=== PATIENT | female | born 1955 | race Caucasian/White ===

== ENCOUNTER 2018-06-14 18:28 | Emergency (ER) | payer BC, SELFPAY ==
[2018-06-14 18:34] VITALS: BMI 21.9
--- NOTE | 2018-06-14 18:56 | DI.RAD.S_ITS ---
PROCEDURE: XR CHEST 2V INDICATIONS: chest pain TECHNIQUE: 2 views of the chest were acquired. COMPARISON: None. FINDINGS: Surgical changes and devices: None. Lungs and pleura: No pleural effusions or pneumothorax. Lungs are clear. Mediastinum: Mediastinal contours are normal. Heart size is normal. Bones and chest wall: No suspicious bony abnormalities. Soft tissues appear unremarkable. IMPRESSION: No acute pulmonary process. Dictated by: Nika Bender M.D. on 06/14/2018 at 19:25 Approved by: Nika Bender M.D. on 06/14/2018 at 19:25
[2018-06-14 19:04] LABS: Add Manual Diff / Slide Review NO; Basophils Percent Auto 0.8 % (0-2); Eosinophils Percent Auto 1.4 % (2-4); Hematocrit 35.6 % (36-46); Hemoglobin 12.2 g/dL (12.0-16.0); Lymphocytes Percent Auto 31.7 % (25-40); Mean Corpuscular HGB Conc 34.3 % (30-36); Mean Corpuscular Hemoglobin 32.3 PG (26-34); Mean Corpuscular Volume 94.1 fL (80-100); Monocytes Percent Auto 8.3 % (3-14); Neutrophils Absolute Auto 3500 /uL (3000-5900); Neutrophils Percent Auto 57.8 % (50-75); Platelet Count 225 X10^3/uL (150-400); Red Blood Cell Count 3.78 X10^6/uL (4.0-5.2); Red Cell Distribution Width 12.6 % (11.6-14.8)
--- NOTE | 2018-06-14 19:04 | ED_ITS ---
HPI - Chest Pain General Chief Complaint: Chest Pain Stated Complaint: CP Time Seen by Provider: 06/14/18 18:52 Source: patient Mode of arrival: ambulatory Limitations: no limitations History of Present Illness HPI narrative: Patient is a 62-year-old female presents with left-sided chest pain. On it hurts in 1 particular area every time she breathes. She did quite a bit of activity today. He was moving and lifting boxes. She was up and down stairs. She did not have to stop due to chest pain. Now that she has stopped she is noticing it more. It is not radiating. It is not reproducible with arm movement. She states that she has had things like this in the past she notices it mostly at nighttime when she is lying down. MD complaint: chest pain Related Data Home Medications Medication Instructions Recorded Confirmed [CALCIUM] Q DAY #0 12/31/12 05/17/18 [VITAMIN C] 0 Q DAY #0 12/31/12 05/17/18 [VITAMIN D] 0 Q DAY #0 12/31/12 05/17/18 iodine (bulk) 25 gm MC #0 01/18/18 05/17/18 magnesium citrate 100 mg PO #0 01/18/18 05/17/18 Allergies Allergy/AdvReac Type Severity Reaction Status Date / Time omeprazole [From PRILOSEC] Allergy Unknown Unverified 05/17/18 08:36 Review of Systems Review of Systems All systems reviewed & are unremarkable except as noted in HPI and below Constitutional Denies chills, Denies fever(s), Denies lethargy and Denies weakness Cardiovascular Reports as per HPI, Denies dyspnea and Denies dyspnea on exertion Respiratory Denies cough, Denies dyspnea, Denies dyspnea on exertion and Denies wheezing Gastrointestinal Gastrointestinal: Denies abdominal pain, Denies change in bowel habits, Denies diarrhea, Denies nausea and Denies vomiting Musculoskeletal Denies back pain, Denies muscle weakness, Denies numbness and Denies tingling Integumentary/Breasts Denies pruritus, Denies erythema, Denies rash and Denies wounds Neurologic Denies numbness, Denies tingling and Denies weakness Allergic/Immunologic Denies wheezing PFSH Medical History Healthy adult (Acute) Social History Smoking Status: Never smoker alcohol intake: never substance use type: does not use Comment: No family history of [place] Exam Initial Vital Signs Initial Vital Signs: Vital Signs Pulse Rate 54 L 06/14/18 19:37 Respiratory Rate 18 06/14/18 19:37 Blood Pressure 125/74 H 06/14/18 19:37 Pulse Oximetry 100 06/14/18 19:37 GENERAL: Well-appearing, well-nourished and in no acute distress. HEENT: Head atraumatic,EOMI, pupils reactive CARDIOVASCULAR: Regular rate and rhythm without murmurs, rubs or gallops. Pain on left side of chest between 2nd and 3rd ribs slightly reproducible with palpation RESPIRATORY: Breath sounds equal bilaterally, no wheezes rales or rhonchi. ABDOMEN: Soft, nontender. Normoactive bowel sounds all 4 quadrants. No guarding or rebound. EXTREMITIES: Normal range of motion, no clubbing or edema. Neurovascularly intact NEUROLOGICAL: Alert and oriented x4.Normal gait and speech. Cranial nerves II through XII grossly intact. SKIN: Warm, dry, no laceration, no petechiae, no rashes or lesions. Scores HEART Score Heart Score history: Slightly Suspicious Heart Score EKG: Normal Heart Score Age: 45-64 years old Heart Score risk factors: No known risk factors Heart Score troponin: < or = to normal limit Heart Score Total: 1 Course Orders Ordered: ED Orders 06/14/18 18:47 Complete Blood Count AUTO DIFF Stat Comprehensive Metabolic Panel Stat Lipase Stat Troponin & CK Cardiac Panel Stat 06/14/18 18:54 EKG-12 Lead Stat 06/14/18 18:56 XR chest 2V Stat 06/14/18 19:41 Troponin I Stat 06/14/18 21:06 Troponin I Stat Discontinued Medications Aspirin (Aspirin Chew) 324 mg PO NOW ONE Stop: 06/14/18 18:55 Last Admin: 06/14/18 19:10 Dose: 324 mg Vital Signs - 8 hr 06/14/18 19:37 06/14/18 20:29 06/14/18 22:19 Pulse Rate 54 L 59 L 57 L Respiratory Rate 18 18 12 Blood Pressure 133/77 H Blood Pressure [Left Arm] 125/74 H 128/78 H Pulse Oximetry 100 99 99 MDM - Chest Pain Medical Records Data Attestation: I reviewed the patient's medical records. Lab Data Attestation: I reviewed the patient's lab results. Result diagrams: 06/14/18 18:47 06/14/18 18:47 Lab Results 06/14/18 06/14/18 06/14/18 Range/Units 18:47 18:47 19:41 WBC 6.0 (4.5-11.0) X10^3/uL RBC 3.78 L (4.0-5.2) X10^6/uL Hgb 12.2 (12.0-16.0) g/dL Hct 35.6 L (36-46) % MCV 94.1 (80-100) fL MCH 32.3 (26-34) PG MCHC 34.3 (30-36) % RDW 12.6 (11.6-14.8) % Plt Count 225 (150-400) X10^3/uL Neut % (Auto) 57.8 (50-75) % Lymph % (Auto) 31.7 (25-40) % [place] % (Auto) 8.3 (3-14) % Eos % (Auto) 1.4 L (2-4) % Baso % (Auto) 0.8 (0-2) % Neut # (Auto) 3500 (5303-8485) /uL Sodium 140 (137-145) mmol/L Potassium 3.9 (3.4-5.1) mmol/L Chloride 105 (98-107) mmol/L Carbon Dioxide 26 (22-32) mmol/L BUN 14 (7-17) mg/dL Creatinine 0.60 (0.52-1.04) mg/dL Estimated GFR > 60.0 (>60) mL/min BUN/Creatinine Ratio 23.3 H (6-22) Glucose 90 (80-110) mg/dL Calcium 8.7 (8.4-10.2) mg/dL Total Bilirubin 0.6 (0.2-1.3) mg/dL AST 21 (14-36) IU/L ALT 20 (9-52) IU/L Alkaline Phosphatase 79 (38-126) U/L Total Creatine Kinase 90 (30-135) U/L Troponin I < 0.012 < 0.012 (0.01-0.034) ng/mL Total Protein 6.8 (6.3-8.2) g/dL Albumin 3.9 (3.5-5.0) g/dL Globulin 2.9 (1.7-4.1) g/dL Albumin/Globulin Ratio 1.3 (1.0-2.8) Lipase 72 (23-300) U/L //18 Range/Units 21:06 WBC (4.5-11.0) X10^3/uL RBC (4.0-5.2) X10^6/uL Hgb (12.0-16.0) g/dL Hct (36-46) % MCV (80-100) fL MCH (26-34) PG MCHC (30-36) % RDW (11.6-14.8) % Plt Count (150-400) X10^3/uL Neut % (Auto) (50-75) % Lymph % (Auto) (25-40) % [place] % (Auto) (3-14) % Eos % (Auto) (2-4) % Baso % (Auto) (0-2) % Neut # (Auto) (4221-0696) /uL Sodium (137-145) mmol/L Potassium (3.4-5.1) mmol/L Chloride (98-107) mmol/L Carbon Dioxide (22-32) mmol/L BUN (7-17) mg/dL Creatinine (0.52-1.04) mg/dL Estimated GFR (>60) mL/min BUN/Creatinine Ratio (6-22) Glucose (80-110) mg/dL Calcium (8.4-10.2) mg/dL Total Bilirubin (0.2-1.3) mg/dL AST (14-36) IU/L ALT (9-52) IU/L Alkaline Phosphatase (38-126) U/L Total Creatine Kinase (30-135) U/L Troponin I < 0.012 (0.01-0.034) ng/mL Total Protein (6.3-8.2) g/dL Albumin (3.5-5.0) g/dL Globulin (1.7-4.1) g/dL Albumin/Globulin Ratio (1.0-2.8) Lipase (23-300) U/L Imaging Data Chest x-ray: Radiologist's impression: PROCEDURE: XR CHEST 2V INDICATIONS: chest pain TECHNIQUE: 2 views of the chest were acquired. COMPARISON: None. FINDINGS: Surgical changes and devices: None. Lungs and pleura: No pleural effusions or pneumothorax. Lungs are clear. Mediastinum: Mediastinal contours are normal. Heart size is normal. Bones and chest wall: No suspicious bony abnormalities. Soft tissues appear unremarkable. IMPRESSION: No acute pulmonary process. Dictated by: Nika Bender M.D. on 06/14/2018 at 19:25 ECG Data Attestation: I personally reviewed and interpreted this ECG as follows: Prior ECG tracings: available for review Interpretation: EKG 1.: Sinus rhythm rate 60 Q-waves noted in septal leads no acute ST changes no priors to compare normal intervals EKG 2.: Sinus rhythm rate 54 similar to previous no ST changes. MDM Narrative Medical decision making narrative: Patient's pain pain is slightly reproducible. She was able to do quite extensive physical activity today without any difficulties. She says she has had something like this previously while lying down at night trying to go to sleep. My suspicion for cardiac issue is low. Although she does have Q-waves noted on her EKG with no prior known cardiac disease. I discussed these findings with her. I discussed all findings with the patient. Education has been performed regarding treatment plan, diagnosis, warning signs and symptoms and all concerns have been addressed. Verbally agree with and understood all of the above. Discharge Plan Departure Patient Disposition: Home, Self-Care Clinical Impression: Atypical chest pain Discharge Date/Time: 06/14/18 22:19 Interventions: ED Discharge Assessment Last Done: 06/14/18 22:19 Instructions: DI for Atypical Chest Pain Activity Restrictions/Additional Instructions: *You have been diagnosed with atypical chest *What to do: You may require further cardiac evaluation with her primary care physician *Continue to take medications as directed *Follow up with your primary care provider in 2-3 days *Return to ER if you should have increasing chest pain, change in nature, shortness of breath or any new, worsening or concerning symptoms Prescriptions: No Action [CALCIUM] Q DAY Qty: 0 RF: 0 [VITAMIN C] Q DAY Qty: 0 RF: 0 [VITAMIN D] Q DAY Qty: 0 RF: 0 iodine (bulk) 25 GM crystals 25 gm MC Qty: 0 RF: 0 magnesium citrate 100 MG tablet 100 mg PO Qty: 0 RF: 0 Referrals: Moose Verma MD [Primary Care Provider] -
[2018-06-14 19:08] LABS: Alanine Aminotransferase 20 IU/L (9-52); Albumin 3.9 g/dL (3.5-5.0); Albumin Globulin Ratio 1.3 (1.0-2.8); Alkaline Phosphatase 79 U/L (38-126); Aspartate Aminotransferase 21 IU/L (14-36); BUN Creatinine Ratio 23.3 (6-22); Bilirubin Total 0.6 mg/dL (0.2-1.3); Blood Urea Nitrogen 14 mg/dL (7-17); Calcium 8.7 mg/dL (8.4-10.2); Carbon Dioxide 26 mmol/L (22-32); Chloride 105 mmol/L (98-107); Creatine Kinase 90 U/L (30-135); Estimated Glomerular Filt Rate > 60.0 mL/min (>60); Globulin 2.9 g/dL (1.7-4.1); Glucose 90 mg/dL (80-110); HEMOLYSIS < 15 (0-50); Lipase 72 U/L (23-300); Potassium 3.9 mmol/L (3.4-5.1); Sodium 140 mmol/L (137-145); Total Protein 6.8 g/dL (6.3-8.2)
[2018-06-14] MEDS: ASPIRIN 81 MG TAB 324 MG PO (19:10)
[2018-06-14 19:20] LABS: Troponin I < 0.012 ng/mL (0.01-0.034)
[2018-06-14 19:37] VITALS: BP 125/74; PULSE 54; RESP 18; O2SAT 100
[2018-06-14 20:01] LABS: Troponin I < 0.012 ng/mL (0.01-0.034)
[2018-06-14 20:29] VITALS: BP 128/78; PULSE 59; RESP 18; O2SAT 99
[2018-06-14 21:43] LABS: Troponin I < 0.012 ng/mL (0.01-0.034)
[2018-06-14 22:19] VITALS: BP 133/77; PULSE 57; RESP 12; O2SAT 99
== END 2018-06-14 22:19 | disposition home or self-care (01) ==
PROVIDERS: Emergency Provider Emergency Medicine
DX: R07.89 Other chest pain (principal)
CPT/HCPCS: 36415; 71046; 80053; 82550; 82553; 83690; 84484; 85025; 93005; 93010; 99282; 99285

== ENCOUNTER → 2018-10-01 11:46 | Outpatient (CLI) | payer SELFPAY | PROVIDERS: PCP Family Medicine; Visit Provider Family Medicine | DX: Z12.11 Encounter for screening for malignant neoplasm of colon (principal) ==

== ENCOUNTER → 2019-07-21 13:06 | Outpatient (CLI) | payer BC, SELFPAY ==
[2019-07-23 16:55] LABS: Fecal Immunochemical Test NOT DETECTED (NOT DETECTED)
== END ==
PROVIDERS: PCP Family Medicine; Visit Provider Family Medicine
DX: Z12.11 Encounter for screening for malignant neoplasm of colon (principal)
CPT/HCPCS: 82274

== ENCOUNTER → 2019-07-22 12:11 | Outpatient (CLI) | payer BC, SELFPAY ==
--- NOTE | 2019-07-22 12:12 | DI.MG.S_ITS ---
BILATERAL DIGITAL SCREENING MAMMOGRAM 3D/2D WITH CAD: 07/22/2019 CLINICAL: Routine screening. Family history of breast cancer. Comparison is made to exams dated: 09/09/2011 mammogram, 03/15/2010 mammogram, and 03/09/2009 mammogram - [facility]. The tissue of both breasts is extremely dense, which lowers the sensitivity of mammography. Current study was also evaluated with a Computer Aided Detection (CAD) system. There is a mole marker on the right breast. There are mole markers on the left breast. No significant masses, calcifications, or other findings are seen in either breast. There has been no significant interval change. IMPRESSION: NEGATIVE There is no mammographic evidence of malignancy. A 1 year screening mammogram is recommended. This exam was interpreted at Station ID: [id number]. NOTE: For mammograms, a report in lay terms will be sent to the patient. Approximately 15% of breast malignancies will not be visualized mammographically. In the management of a palpable breast mass, a negative mammogram must not discourage biopsy of a clinically suspicious lesion. Electronically Signed By: Jameel wilhelm/elana:07/22/2019 16:30:06 letter sent: Normal Exam ACR BI-RADS Category 1: Negative 3341F
== END ==
PROVIDERS: PCP Family Medicine; Visit Provider Family Medicine
DX: Z12.31 Encounter for screening mammogram for malignant neoplasm of breast (principal); Z80.3 Family history of malignant neoplasm of breast
CPT/HCPCS: 77063; 77067

== ENCOUNTER → 2020-05-15 10:49 | Outpatient (CLI) | payer BC, SELFPAY ==
[2020-05-17 04:08] LABS: COVID19 Sendout Not Detected (Not Detected)
== END ==
PROVIDERS: PCP Family Medicine; Visit Provider Physician Assistant
DX: J02.9 Acute pharyngitis, unspecified (principal); R52 Pain, unspecified
CPT/HCPCS: 87635

== ENCOUNTER → 2021-01-25 10:28 | Outpatient (CLI) | payer OTHER, SELFPAY ==
[2021-01-28 09:11] LABS: Fecal Immunochemical Test Negative (Negative)
== END ==
PROVIDERS: PCP Family Medicine; Referring Provider Family Medicine; Visit Provider Family Medicine
DX: Z12.11 Encounter for screening for malignant neoplasm of colon (principal)
CPT/HCPCS: 82274

== ENCOUNTER → 2021-11-15 09:56 | Outpatient (CLI) | payer OTHER, SELFPAY ==
--- NOTE | 2021-11-15 10:12 | DI.RAD.S_ITS ---
PROCEDURE: XR ELBOW LT MIN 3V INDICATIONS: fall TECHNIQUE: 3 views of the elbow were acquired. COMPARISON: None. FINDINGS: Bones: Nondisplaced proximal radial head fracture is present. Soft tissues: Mild elbow joint effusion. No suspicious soft tissue calcifications. IMPRESSION: Nondisplaced proximal radial head fracture. Dictated by: Nika Bender M.D. on 11/15/2021 at 10:32 Approved by: Nika Bender M.D. on 11/15/2021 at 10:33
== END ==
PROVIDERS: PCP Family Medicine; Referring Provider Nurse Practitioner Family; Visit Provider Nurse Practitioner Family
DX: S52.125A Nondisplaced fracture of head of left radius, initial encounter for closed fracture (principal); M25.422 Effusion, left elbow; W19.XXXA Unspecified fall, initial encounter
CPT/HCPCS: 73080

== ENCOUNTER → 2022-03-26 09:16 | Outpatient (CLI) | payer MEDICARE, OTHER, SELFPAY ==
--- NOTE | 2022-03-26 | DI.MG.S_ITS ---
BILATERAL DIGITAL SCREENING MAMMOGRAM 3D/2D WITH CAD: 03/26/2022 CLINICAL: Routine screening. Family history of breast cancer. Comparison is made to exams dated: 07/22/2019 mammogram, 09/09/2011 mammogram, and 03/15/2010 mammogram - [facility]. The tissue of both breasts is extremely dense, which lowers the sensitivity of mammography. Current study was also evaluated with a Computer Aided Detection (CAD) system. There are mole markers on the left breast. No significant masses, calcifications, or other findings are seen in either breast. There has been no significant interval change. IMPRESSION: NEGATIVE There is no mammographic evidence of malignancy. A 1 year screening mammogram is recommended. This exam was interpreted at Station ID: [id number]. NOTE: For mammograms, a report in lay terms will be sent to the patient. Approximately 15% of breast malignancies will not be visualized mammographically. In the management of a palpable breast mass, a negative mammogram must not discourage biopsy of a clinically suspicious lesion. Electronically Signed By: Sabrina lanza/elana:03/26/2022 12:16:04 letter sent: Normal Exam ACR BI-RADS Category 1: Negative 3341F
== END ==
PROVIDERS: PCP Family Medicine; Referring Provider Family Medicine; Visit Provider Family Medicine
DX: Z12.31 Encounter for screening mammogram for malignant neoplasm of breast (principal); Z80.3 Family history of malignant neoplasm of breast
CPT/HCPCS: 77063; 77067

== ENCOUNTER → 2022-05-29 11:32 | Outpatient (CLI) | payer MEDICARE, OTHER, SELFPAY | PROVIDERS: PCP Family Medicine; Referring Provider Family Medicine; Visit Provider Family Medicine | DX: N95.9 Unspecified menopausal and perimenopausal disorder (principal); M81.0 Age-related osteoporosis without current pathological fracture; M85.89 Other specified disorders of bone density and structure, multiple sites | CPT/HCPCS: 77080 ==

== ENCOUNTER → 2022-08-18 10:29 | Outpatient (CLI) | payer MEDICARE, OTHER, SELFPAY ==
[2022-08-18 12:05] LABS: Alanine Aminotransferase 18 IU/L (<35); Albumin 4.1 g/dL (3.5-5.0); Albumin Globulin Ratio 1.4 (1.0-2.8); Alkaline Phosphatase 79 U/L (38-126); Aspartate Aminotransferase 25 IU/L (14-36); BUN Creatinine Ratio 18.7 (6-22); Bilirubin Total 0.9 mg/dL (0.2-1.3); Blood Urea Nitrogen 14 mg/dL (7-17); Calcium 8.8 mg/dL (8.4-10.2); Carbon Dioxide 25 mmol/L (22-32); Chloride 103 mmol/L (98-107); Estimated Glomerular Filt Rate > 60 mL/min (>60); Globulin 2.9 g/dL (1.7-4.1); Glucose 87 mg/dL (80-110); HEMOLYSIS < 15 (0-50); Sodium 138 mmol/L (137-145)
== END ==
PROVIDERS: PCP Family Medicine; Referring Provider Family Medicine; Visit Provider Family Medicine
DX: B35.1 Tinea unguium (principal); M81.0 Age-related osteoporosis without current pathological fracture
CPT/HCPCS: 36415; 80053

== ENCOUNTER 2023-02-02 09:45 | Outpatient (RCR) | payer MEDICARE, OTHER, SELFPAY ==
--- NOTE | 2022-10-30 16:49 | PT.OIE ---
Current Diagnoses Other specified disorders of muscle (10/30/22) Past Medical History (Last Updated 06/15/18 @ 03:20 by Elvira Ferguson DO) Healthy adult Past Surgical History (Last Updated 01/22/21 @ 09:46 by Sofia Morgan MD) S/P complete hysterectomy S/P oophorectomy Visit Care Team Role Provider Type Sofia Morgan MD Attending Provider Physician Family Provider Primary Care Provider Referring Provider Specialty: [facility] Address: [address] [place] [address], [place], [place], [facility] Email: [email or web address] Physical Therapy Initial Evaluation PT-OP-A Visit Information Start: 10/24/22 18:38 Freq: Status: Active Protocol: Document 10/30/22 09:55 LRN (Rec: 10/30/22 12:51 LRN [id number]) Out-Patient Physical Therapy Visit Information Visit Information Visit Type Initial Evaluation Visit Start Time 09:55 Visit Stop Time 10:49 Total Visit Minutes 54 Visit Number 1 Evaluation Information Evaluation Date 10/30/22 Precautions Precautions R clavicle fracture 1 week ago . PT-OP-B Current Condition Start: 10/24/22 18:38 Freq: Status: Active Protocol: Document 10/30/22 09:55 LRN (Rec: 10/30/22 12:51 LRN [id number]) Current Condition History of Current Condition Onset Date ~6 months ago Current Complaints Urinary urgency with occasional leakage History of Current Condition Was having urinary urgency and had trouble holding urine when flying. Tried use of pessary for a few weeks, then had Bladder lift 2019 with at [facility], and had an oophorectormy and hysterectomy . No therapy afterwards. Went to bladder class and did ex's before surgery. Now occasionally straining is causing bladder to drop and sometimes can't get to bathroom fast enough and she wets her underwear. Treatment Goals Patient/Caregiver Goals Pt goal is to learn bladder ex 's, which ex's to keep bladder toned to prevent droppage of bladder. Feels it after bowel movent, she can palpate it and pushes it back up. Has 2 visits scheduled. Current Functional Impairments (Reported) Functional Limitations- ADL's Sometimes not able to make it to bathroom in time to urinate . Personal Factors Other Personal Factors That May Effect Borderline Osteoporosis. Therapy/Recovery Retired RN. 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 PT-OP-C Subjective Start: 10/24/22 18:38 Freq: Status: Active Protocol: Document 10/30/22 09:55 LRN (Rec: 10/30/22 12:51 LRN [id number]) OP-PT Subjective Patient Comments Patient Comments States 1 week ago (last Wed) fell skiing and suffered a non -displaced L clavicle fracture and has trouble lying flat or on side. Pt is R handed. Patient Questionnaires Pelvic Pain and Urgency/Frequency Patient Symptom Scale Pelvic Pain Score 8 PT-OP-I Pelvic Floor Start: 10/24/22 18:38 Freq: Status: Active Protocol: Document 10/30/22 09:55 LRN (Rec: 10/30/22 12:51 LRN [id number]) Pelvic Floor Assessment Urine Pelvic Floor Surgery Yes Urinary Symptoms Urge Sensation,Prolapse Other Urinary Symptoms Sometimes wets underwear trying to get to bathroom. Leakage Size Small Leakage Cause Urge Leaks Per Day Urgency and leakage 3-4x/week Nocturia 1-2 Pads Used In 24 Hours Pt is not using pads Bowel Bowel Surgery No Other Bowel Symptoms Sometimes constipation Bowel Movement Frequency 1-2x/day [place] Stool Chart Type 1-7 3 [place] Stool Chart Comments Constipated when travels, 1/3 travelling Prolapse Cystocele Grade 3 Prolapse Comments Vaginal vault prolapse present . Perineal Descent Resting Present Bearing Present Contraction Ability Voluntary Contraction Weak Manual Muscle Testing Left 2 Manual Muscle Testing Right 2 Manual Muscle Testing Anterior 1 Manual Muscle Testing Posterior 2 Muscle Endurance (Seconds) 3 Number of Quick Contractions In 10 5 Seconds Comments Pelvic Floor Comments Supine: Visible/palpable cystocele and palpable Vaginal vault prolapse. Standing: Visible/palpable cystocele. PT-OP-J Posture/Palpation/Skin Start: 10/24/22 18:38 Freq: Status: Active Protocol: Document 10/30/22 09:55 LRN (Rec: 10/30/22 12:51 LRN [id number]) Posture Evaluation Position Standing Shoulder Posture (L) Elevated Pelvis Posture Posterior Tilted,(L) Rotated Posterior Hip Posture (R) Internally Rotated,(L) Externally Rotated Comments Posture Comments L arm in sling, pt Guarded in thoracic region due to reported possible L rib fractures (non-diagnosed). PT-OP-K Range of Motion Start: 10/24/22 18:38 Freq: Status: Active Protocol: Document 10/30/22 09:55 LRN (Rec: 10/30/22 12:51 LRN [id number]) Lumbar Spine Range of Motion Lumbar Spine Active Degrees Testing Position Standing Flexion 87 Extension 15 Rotation Left 20 Rotation Right 5 Lateral Flexion Left 8 Lateral Flexion Right 13 ROM Limitations Soft Tissue Tightness,Pain Comments NOTE: Pt thinks she has fx'd ribs on L side. Hip Goniometric Range of Motion Hip Right Passive Testing Position Sitting Internal Rotation 48 External Rotation 10 Left Passive Testing Position Sitting Internal Rotation 38 External Rotation 22 PT-OP-M Strength Start: 10/24/22 18:38 Freq: Status: Active Protocol: Document 10/30/22 09:55 LRN (Rec: 10/30/22 12:51 LRN [id number]) Trunk Strength Trunk Manual Muscle Testing Core Stabilization Deferred due to fx'd L Clavicle pain with positioning in supine. Hip Strength Hip Manual Muscle Testing Right External Rotation 4+ Good+ Internal Rotation 4+ Good+ Comments Testing deferred except as indicated above due to fx'd L Clavicle pain with positioning in supine. Left External Rotation 5 Normal Internal Rotation 4+ Good+ Comments Testing deferred except as indicated above due to fx'd L Clavicle pain with positioning in supine. PT-OP-Q Treatments Start: 10/24/22 18:38 Freq: Status: Active Protocol: Document 10/30/22 09:55 LRN (Rec: 10/30/22 12:51 LRN [id number]) Self-Care/Home Management Treatment Education Other Education Discussed results of evaluation, goals, and plan of care (POC). Pt agreeable to goals and POC. Pt educated in use of Bladder Diary and I/S in tracking for 1 week. Discussed use of 2 different diaries for tracking of bladder. PT-OP-T Assessment and Plan Start: 10/24/22 18:38 Freq: Status: Active Protocol: Document 10/30/22 09:55 LRN (Rec: 10/30/22 12:51 LRN [id number]) Physical Therapy Assessment Rehab Potential Rehabilitation Potential Good Evaluation Complexity Number of Personal Factors/Comorbidities 1-2 Number of Body Systems Impaired 4 or More Clinical Presentation at Evaluation Evolving Impairments Impairments Activity Tolerance,Posture,ROM ,Strength,Transfers Goals Three Impairment Decrease urinay leakage. Impairment Pt leaks 3-4x/week. Short Term Goal (STG) Pt will be educated in normal voiding times and amounts and urinary urge deference technique. STG Duration 11/27/22 Newspaper Journalist Goal (LTG) Pt will improve PF strength with decrease in urinary leakage and wetting of underwear. LTG Duration 01/28/23 Two Impairment Decrease urgency Short Term Goal (STG) Pt will be educated in BM massage and proper bowel care. STG Duration 11/27/22 Newspaper Journalist Goal (LTG) Pt will report decreased onset of urinary urgency. LTG Duration 01/28/23 One Impairment Pt lacks self care HEP. Short Term Goal (STG) Pt educated in proper transfers to lessen core abdominal pressure. STG Duration 11/27/22 Newspaper Journalist Goal (LTG) Pt will be independent in appropriate self care HEP of PF strengthening & hip stretches. Pt will be independent in appropriate core strengthening ex's. LTG Duration 01/28/23 Assessment Summary Assessment Pt is a 67 yo female with a grade 3 Cystocele and palpable vaginal vault proplapse s/p hysterectomy and oophorectomy . Stool was palpable in the rectum on internal exam, but pt denies constipation. She has weakness of her Pelvic Floor (PF) Quick Flick and Long Hold muscles. The pt PF external and internal tissues are somewhat dry and may benefit from medication to improve tissue health. In standing her cytocele is visible and extends beyond her vaginal canal opening. A pessary was used prior to her bladder lift surgery, but the pt did not like using it; therefore further discussion for use of pessary may be needed if she is not able to improve her PF strength enough to provide further support of her bladder. The pt is likely going to need an external support or other medical treatment to correct her cystocele from extending beyond her vagainal opening. She does demonstrate tenderness at the R transverse perineum and would benefit from STM to improve perineum length to eliminate vaginal gapping. Pt education will be needed for behaviour modification to eliminate urinary leakage and to decrease core pressure excerbating her prolapse condition. The pt will be assessed at the next visit with EMG biofeedback to get an idea of her overall PF strength. The pt will benefit from skilled physical therapy for PF strengthening, education and behavior modification to minimize bladder prolapse and to minimize urinary leakage on urgency. The pt's rehab will be hindered by her recent clavical fracture as she will need assist with some exercises and her tolerance to positioning for therapy is very limited. Physical Therapy Plan Frequency and Duration Frequency of Treatment 1x/Week Plan of Care Start Date 10/30/22 Plan of Care End Date 01/28/23 Therapeutic Interventions Therapeutic Interventions Home Exercise Program,Joint Mobilizations,Manual Therapy, Neuromuscular Re-education, Patient/Caregiver Education, Self-Care/Home Management,Soft Tissue Mobilization, Therapeutic Activities, Therapeutic Exercises Modalities Biofeedback,Electric Stimulation Next Visit Focus/Plan Next Note Type Treatment Note Next Visit Plan PF strength assessment and exercise with use of ES for PF assessment and biofeedback, possible use for contraction awareness. Review of Bladder diary and education/discussion of behaviour modification ( transfers, urinary holding, posture) Ther Ex for hip stretches of R >L ER, L>R IR & jennifer hip AD stretch. Manual: Hip stretches, PF stretch to close vaginal opening. Assess abdominal region for tightness/ restrictions.
--- NOTE | 2022-10-30 17:03 | PT.OIE ---
Current Diagnoses Other specified disorders of muscle (10/30/22) Past Medical History (Last Updated 06/15/18 @ 03:20 by Elvira Ferguson DO) Healthy adult Past Surgical History (Last Updated 01/22/21 @ 09:46 by Sofia Morgan MD) S/P complete hysterectomy S/P oophorectomy Visit Care Team Role Provider Type Sofia Morgan MD Attending Provider Physician Family Provider Primary Care Provider Referring Provider Specialty: [facility] Practice Address: [address] [place] [address], [place], [place], [facility] Email: [email or web address] Physical Therapy Initial Evaluation PT-OP-A Visit Information Start: 10/24/22 18:38 Freq: Status: Active Protocol: Document 10/30/22 09:55 LRN (Rec: 10/30/22 12:51 LRN [id number]) Out-Patient Physical Therapy Visit Information Visit Information Visit Type Initial Evaluation Visit Start Time 09:55 Visit Stop Time 10:49 Total Visit Minutes 54 Visit Number 1 Evaluation Information Evaluation Date 10/30/22 Precautions Precautions R clavicle fracture 1 week ago . PT-OP-B Current Condition Start: 10/24/22 18:38 Freq: Status: Active Protocol: Document 10/30/22 09:55 LRN (Rec: 10/30/22 12:51 LRN [id number]) Current Condition History of Current Condition Onset Date ~6 months ago Current Complaints Urinary urgency with occasional leakage History of Current Condition Was having urinary urgency and had trouble holding urine when flying. Tried use of pessary for a few weeks, then had Bladder lift 2019 with at [facility], and had an oophorectormy and hysterectomy . No therapy afterwards. Went to bladder class and did ex's before surgery. Now occasionally straining is causing bladder to drop and sometimes can't get to bathroom fast enough and she wets her underwear. Treatment Goals Patient/Caregiver Goals Pt goal is to learn bladder ex 's, which ex's to keep bladder toned to prevent droppage of bladder. Feels it after bowel movent, she can palpate it and pushes it back up. Has 2 visits scheduled. Current Functional Impairments (Reported) Functional Limitations- ADL's Sometimes not able to make it to bathroom in time to urinate . Personal Factors Other Personal Factors That May Effect Borderline Osteoporosis. Therapy/Recovery Retired RN. 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 PT-OP-C Subjective Start: 10/24/22 18:38 Freq: Status: Active Protocol: Document 10/30/22 09:55 LRN (Rec: 10/30/22 12:51 LRN [id number]) OP-PT Subjective Patient Comments Patient Comments States 1 week ago (last Wed) fell skiing and suffered a non -displaced L clavicle fracture and has trouble lying flat or on side. Pt is R handed. Patient Questionnaires Pelvic Pain and Urgency/Frequency Patient Symptom Scale Pelvic Pain Score 8 PT-OP-I Pelvic Floor Start: 10/24/22 18:38 Freq: Status: Active Protocol: Document 10/30/22 09:55 LRN (Rec: 10/30/22 12:51 LRN [id number]) Pelvic Floor Assessment Urine Pelvic Floor Surgery Yes Urinary Symptoms Urge Sensation,Prolapse Other Urinary Symptoms Sometimes wets underwear trying to get to bathroom. Leakage Size Small Leakage Cause Urge Leaks Per Day Urgency and leakage 3-4x/week Nocturia 1-2 Pads Used In 24 Hours Pt is not using pads Bowel Bowel Surgery No Other Bowel Symptoms Sometimes constipation Bowel Movement Frequency 1-2x/day [place] Stool Chart Type 1-7 3 [place] Stool Chart Comments Constipated when travels, 1/3 travelling Prolapse Cystocele Grade 3 Prolapse Comments Vaginal vault prolapse present . Perineal Descent Resting Present Bearing Present Contraction Ability Voluntary Contraction Weak Manual Muscle Testing Left 2 Manual Muscle Testing Right 2 Manual Muscle Testing Anterior 1 Manual Muscle Testing Posterior 2 Muscle Endurance (Seconds) 3 Number of Quick Contractions In 10 5 Seconds Comments Pelvic Floor Comments Supine: Visible/palpable cystocele and palpable Vaginal vault prolapse. Standing: Visible/palpable cystocele. PT-OP-J Posture/Palpation/Skin Start: 10/24/22 18:38 Freq: Status: Active Protocol: Document 10/30/22 09:55 LRN (Rec: 10/30/22 12:51 LRN [id number]) Posture Evaluation Position Standing Shoulder Posture (L) Elevated Pelvis Posture Posterior Tilted,(L) Rotated Posterior Hip Posture (R) Internally Rotated,(L) Externally Rotated Comments Posture Comments L arm in sling, pt Guarded in thoracic region due to reported possible L rib fractures (non-diagnosed). PT-OP-K Range of Motion Start: 10/24/22 18:38 Freq: Status: Active Protocol: Document 10/30/22 09:55 LRN (Rec: 10/30/22 12:51 LRN [id number]) Lumbar Spine Range of Motion Lumbar Spine Active Degrees Testing Position Standing Flexion 87 Extension 15 Rotation Left 20 Rotation Right 5 Lateral Flexion Left 8 Lateral Flexion Right 13 ROM Limitations Soft Tissue Tightness,Pain Comments NOTE: Pt thinks she has fx'd ribs on L side. Hip Goniometric Range of Motion Hip Right Passive Testing Position Sitting Internal Rotation 48 External Rotation 10 Left Passive Testing Position Sitting Internal Rotation 38 External Rotation 22 PT-OP-M Strength Start: 10/24/22 18:38 Freq: Status: Active Protocol: Document 10/30/22 09:55 LRN (Rec: 10/30/22 12:51 LRN [id number]) Trunk Strength Trunk Manual Muscle Testing Core Stabilization Deferred due to fx'd L Clavicle pain with positioning in supine. Hip Strength Hip Manual Muscle Testing Right External Rotation 4+ Good+ Internal Rotation 4+ Good+ Comments Testing deferred except as indicated above due to fx'd L Clavicle pain with positioning in supine. Left External Rotation 5 Normal Internal Rotation 4+ Good+ Comments Testing deferred except as indicated above due to fx'd L Clavicle pain with positioning in supine. PT-OP-Q Treatments Start: 10/24/22 18:38 Freq: Status: Active Protocol: Document 10/30/22 09:55 LRN (Rec: 10/30/22 12:51 LRN [id number]) Self-Care/Home Management Treatment Education Other Education Discussed results of evaluation, goals, and plan of care (POC). Pt agreeable to goals and POC. Pt educated in use of Bladder Diary and I/S in tracking for 1 week. Discussed use of 2 different diaries for tracking of bladder. PT-OP-T Assessment and Plan Start: 10/24/22 18:38 Freq: Status: Active Protocol: Document 10/30/22 09:55 LRN (Rec: 10/30/22 12:51 LRN [id number]) Physical Therapy Assessment Rehab Potential Rehabilitation Potential Good Evaluation Complexity Number of Personal Factors/Comorbidities 1-2 Number of Body Systems Impaired 4 or More Clinical Presentation at Evaluation Evolving Impairments Impairments Activity Tolerance,Posture,ROM ,Strength,Transfers Goals Three Impairment Urinay leakage with urgency. Impairment Sometimes not able to make it to bathroom in time to urinate . Pt leaks 3-4x/week. Short Term Goal (STG) Pt will be educated in normal voiding times and amounts and will modify behaviour to void on 1st or 2nd urinary urge. STG Duration 11/27/22 Interactive Art Director Goal (LTG) Pt will improve PF strength with decrease in urinary leakage and wetting of underwear. LTG Duration 01/28/23 Two Impairment Urinary Urgency sometimes results in urinary leakage Impairment Sometimes pt is not able to make it to the bathroom on air flights. Short Term Goal (STG) Pt will be educated in BM massage and proper bowel care and urinary urge deference technique.. STG Duration 11/27/22 Interactive Art Director Goal (LTG) Pt will report decreased onset of urinary urgency with improvement in bowel care and use of urge deference technique. LTG Duration 01/28/23 One Impairment Pt lacks self care HEP. Short Term Goal (STG) Pt educated in proper transfers to lessen core abdominal pressure. STG Duration 11/27/22 [facility] Goal (LTG) Pt will be independent in appropriate self care HEP of PF strengthening & hip stretches. Pt will be independent in appropriate core strengthening ex's. LTG Duration 01/28/23 Assessment Summary Assessment Pt is a 67 yo female with a grade 3 Cystocele and palpable vaginal vault proplapse s/p hysterectomy and oophorectomy . Stool was palpable in the rectum on internal exam, but pt denies constipation. She has weakness of her Pelvic Floor (PF) Quick Flick and Long Hold muscles. The pt PF external and internal tissues are somewhat dry and may benefit from medication to improve tissue health. In standing her cytocele is visible and extends beyond her vaginal canal opening. A pessary was used prior to her bladder lift surgery, but the pt did not like using it; therefore further discussion for use of pessary may be needed if she is not able to improve her PF strength enough to provide further support of her bladder. The pt is likely going to need an external support or other medical treatment to correct her cystocele from extending beyond her vagainal opening. She does demonstrate tenderness at the R transverse perineum and would benefit from STM to improve perineum length to eliminate vaginal gapping. Pt education will be needed for behaviour modification to eliminate urinary leakage and to decrease core pressure excerbating her prolapse condition. The pt will be assessed at the next visit with EMG biofeedback to get an idea of her overall PF strength. The pt will benefit from skilled physical therapy for PF strengthening, education and behavior modification to minimize bladder prolapse and to minimize urinary leakage on urgency. The pt's rehab will be hindered by her recent clavical fracture as she will need assist with some exercises and her tolerance to positioning for therapy is very limited. Physical Therapy Plan Frequency and Duration Frequency of Treatment 1x/Week Plan of Care Start Date 10/30/22 Plan of Care End Date 01/28/23 Therapeutic Interventions Therapeutic Interventions Home Exercise Program,Joint Mobilizations,Manual Therapy, Neuromuscular Re-education, Patient/Caregiver Education, Self-Care/Home Management,Soft Tissue Mobilization, Therapeutic Activities, Therapeutic Exercises Modalities Biofeedback,Electric Stimulation Next Visit Focus/Plan Next Note Type Treatment Note Next Visit Plan PF strength assessment and exercise with use of ES for PF assessment and biofeedback, possible use for contraction awareness. Review of Bladder diary and education/discussion of behaviour modification ( transfers, urinary holding, posture) Ther Ex for hip stretches of R >L ER, L>R IR & jennifer hip AD stretch. Manual: Hip stretches, PF stretch to close vaginal opening. Assess abdominal region for tightness/ restrictions.
--- NOTE | 2022-11-06 12:31 | PT.OTN ---
Current Diagnoses Other specified disorders of muscle (11/06/22) Physical Therapy Treatment Note PT-OP-A Visit Information Start: 10/24/22 18:38 Freq: Status: Active Protocol: Document 11/06/22 10:42 LRN (Rec: 11/06/22 12:23 LRN [id number]) Out-Patient Physical Therapy Visit Information Visit Information Visit Type Treatment Note Visit Start Time 10:42 Visit Stop Time 11:42 Total Visit Minutes 60 Visit Number 2 Evaluation Information Evaluation Date 10/30/22 Precautions Precautions R clavicle fracture 1 week ago . PT-OP-B Current Condition Start: 10/24/22 18:38 Freq: Status: Active Protocol: Document 10/30/22 09:55 LRN (Rec: 10/30/22 12:51 LRN [id number]) Current Condition History of Current Condition Onset Date ~6 months ago Current Complaints Urinary urgency with occasional leakage History of Current Condition Was having urinary urgency and had trouble holding urine when flying. Tried use of pessary for a few weeks, then had Bladder lift 2019 with at [facility], and had an oophorectormy and hysterectomy . No therapy afterwards. Went to bladder class and did ex's before surgery. Now occasionally straining is causing bladder to drop and sometimes can't get to bathroom fast enough and she wets her underwear. Treatment Goals Patient/Caregiver Goals Pt goal is to learn bladder ex 's, which ex's to keep bladder toned to prevent droppage of bladder. Feels it after bowel movent, she can palpate it and pushes it back up. Has 2 visits scheduled. Current Functional Impairments (Reported) Functional Limitations- ADL's Sometimes not able to make it to bathroom in time to urinate . Personal Factors Other Personal Factors That May Effect Borderline Osteoporosis. Therapy/Recovery Retired RN. 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 PT-OP-C Subjective Start: 10/24/22 18:38 Freq: Status: Active Protocol: Document 11/06/22 10:42 LRN (Rec: 11/06/22 12:23 LRN [id number]) OP-PT Subjective Patient Comments Patient Comments States she and her spouse have been sick, but she is feeling better. L side of ribs hurt with deep breathing. PT-OP-I Pelvic Floor Start: 10/24/22 18:38 Freq: Status: Active Protocol: Document 11/06/22 10:42 LRN (Rec: 11/06/22 12:23 LRN [id number]) Pelvic Floor Assessment SEMG (uV) Baseline 1.6 Quick Contraction 6.4 10 Second Contraction 8.9 Recruitment Pattern Good Relaxation Good Holding Fair Stability of Hold Fair SEMG Stability of Rest Poor/Slow Comments Pelvic Floor Comments EMG per vaginal electrode ( above is Avg strength): Resting: Avg MAX is 2.6 uV's. Quick Flicks: Avg MAX is 10.5 uV's (10 & 20 reps). 10 sec Hold: Avg MAX is 14.7 uV's (10 & 20 reps. 10 sec Hold Rest: Avg 3.1 uV' s and MAX 12.4 uV's PT-OP-J Posture/Palpation/Skin Start: 10/24/22 18:38 Freq: Status: Active Protocol: Document 10/30/22 09:55 LRN (Rec: 10/30/22 12:51 LRN [id number]) Posture Evaluation Position Standing Shoulder Posture (L) Elevated Pelvis Posture Posterior Tilted,(L) Rotated Posterior Hip Posture (R) Internally Rotated,(L) Externally Rotated Comments Posture Comments L arm in sling, pt Guarded in thoracic region due to reported possible L rib fractures (non-diagnosed). PT-OP-K Range of Motion Start: 10/24/22 18:38 Freq: Status: Active Protocol: Document 10/30/22 09:55 LRN (Rec: 10/30/22 12:51 LRN [id number]) Lumbar Spine Range of Motion Lumbar Spine Active Degrees Testing Position Standing Flexion 87 Extension 15 Rotation Left 20 Rotation Right 5 Lateral Flexion Left 8 Lateral Flexion Right 13 ROM Limitations Soft Tissue Tightness,Pain Comments NOTE: Pt thinks she has fx'd ribs on L side. Hip Goniometric Range of Motion Hip Right Passive Testing Position Sitting Internal Rotation 48 External Rotation 10 Left Passive Testing Position Sitting Internal Rotation 38 External Rotation 22 PT-OP-M Strength Start: 10/24/22 18:38 Freq: Status: Active Protocol: Document 10/30/22 09:55 LRN (Rec: 10/30/22 12:51 LRN [id number]) Trunk Strength Trunk Manual Muscle Testing Core Stabilization Deferred due to fx'd L Clavicle pain with positioning in supine. Hip Strength Hip Manual Muscle Testing Right External Rotation 4+ Good+ Internal Rotation 4+ Good+ Comments Testing deferred except as indicated above due to fx'd L Clavicle pain with positioning in supine. Left External Rotation 5 Normal Internal Rotation 4+ Good+ Comments Testing deferred except as indicated above due to fx'd L Clavicle pain with positioning in supine. PT-OP-Q Treatments Start: 10/24/22 18:38 Freq: Status: Active Protocol: Document 11/06/22 10:42 LRN (Rec: 11/06/22 12:23 LRN [id number]) Neuro Re-Education Treatment Other Activities PF Details PF baseline relaxation, Quick Flick & Long Hold PF contractions Reps/Duration 33' Comments Extra time taken to try and coordinate pt's PF contraction with normal breathing. Self-Care/Home Management Treatment Education Other Education Pt educated in use of vaginal electrode to assess PF strength, pt agreeable to use. Educated pt in post EMG vaginal electrode care. Educated pt in Diaphragmatic Deep Breathing and long discussion of effect of possible fx of L ribs on her breathing. Discussed possible x-ray to determine if fx's present, pros/cons of knowing if fx or not. Educated pt abdominal canister anatomy concept, and abdominal pressures with BM and discussed coordination of BM w/breathing. Discussed at length method for having BM and discussion of abdominal canister pressure and relaxation of PF via deep breathing or LE positioning ( discussion of squatty potty). Reviewed PF strengthening using elevation of hips in standing and supine and reasons for elevation for strengthening. Educated and discussed precautions of performing PF contractions while urinating. Activities Self-Care/Home Management Activities Discussed bladder diary and pt I/S to do bladder diary next week since she is better and can focus on completing the diary. I/S pt in PF strengthening supine with pillow under hips and forward bend standing with hips above bladder level. I/S pt to practice deep breathing correctly for PF contraction with inhale and hip ER. I/S pt not to perform PF contractions while urinating to decrease risk of UTI or bladder infection. PT-OP-T Assessment and Plan Start: 10/24/22 18:38 Freq: Status: Active Protocol: Document 11/06/22 10:42 LRN (Rec: 11/06/22 12:23 LRN [id number]) Physical Therapy Assessment Goals Three Impairment Urinay leakage with urgency. Impairment Sometimes not able to make it to bathroom in time to urinate . Pt leaks 3-4x/week. Short Term Goal (STG) Pt will be educated in normal voiding times and amounts and will modify behaviour to void on 1st or 2nd urinary urge. STG Duration 11/27/22 Prison Goal (LTG) Pt will improve PF strength with decrease in urinary leakage and wetting of underwear. LTG Duration 01/28/23 Two Impairment Urinary Urgency sometimes results in urinary leakage Impairment Sometimes pt is not able to make it to the bathroom on air flights. Short Term Goal (STG) Pt will be educated in BM massage and proper bowel care and urinary urge deference technique. STG Duration 11/27/22 Prison Goal (LTG) Pt will report decreased onset of urinary urgency with improvement in bowel care and use of urge deference technique. LTG Duration 01/28/23 One Impairment Pt lacks self care HEP. Short Term Goal (STG) Pt educated in proper transfers to lessen core abdominal pressure. 11/06/22: Discussed core abdominal pressures with BM's. STG Duration 11/27/22 progressing 11/06/22 Prison Goal (LTG) Pt will be independent in appropriate self care HEP of PF strengthening & hip stretches. Pt will be independent in appropriate core strengthening ex's. 11/06/22: I/S pt in Kegels in sup and standing with hips elevated above level of bladder. LTG Duration 01/28/23 progressing 11/06/22 . Assessment Summary Assessment Still no c/o PF pain, PF contractions is with TA tight and holding of breath. Pt Quick flick strength is decreased at avg 6.4 mV's for 10 reps and 6 mV's after 20 reps. Long hold is fair>good at Avg work 8.9 mV's for 10 & 20 reps. Internal Exam outcome same as EMG assessment outcome comparing Quick Flick to Long Holds. Pt has poor coordination of breathing with PF contractions and TA tightening. Was not able to get pt to not perform TA or hold breath during PF contractions. Physical Therapy Plan Frequency and Duration Frequency of Treatment 1x/Week Plan of Care Start Date 10/30/22 Plan of Care End Date 01/28/23 Next Visit Focus/Plan Next Note Type Treatment Note Next Visit Plan Caution: possible L rib fx's causing pain limiting rib excursion during deep breathing. Possible use of ES for PF contraction awareness, although focus needs to be on coordination of PF contractions with regular & deep breathing. Quick Flick strength is weaker than Long Holds. Review of Bladder diary and education/discussion of behaviour modification (proper posture), Educate in BM massage, proper bowel care, urinary urge deference technique, normal voiding times and amounts, and to modify behaviour to void on 1st or 2nd urinary urge. Ther act training: coordination of PF/TA/ transfers. Ther Ex for hip stretches of R >L ER, L>R IR & jennifer hip AD stretch. Manual: Hip stretches, PF stretch to close vaginal opening. Assess abdominal region for tightness/ restrictions in 2-4 more weeks .
--- NOTE | 2022-12-08 12:29 | PT.OTN ---
Current Diagnoses Other specified disorders of muscle (12/08/22) Physical Therapy Treatment Note PT-OP-A Visit Information Start: 10/24/22 18:38 Freq: Status: Active Protocol: Document 12/08/22 11:20 LRN (Rec: 12/08/22 12:29 LRN [id number]) Out-Patient Physical Therapy Visit Information Visit Information Visit Type Treatment Note Visit Start Time 11:20 Visit Stop Time 11:58 Total Visit Minutes 38 Visit Number 4 Evaluation Information Evaluation Date 10/30/22 Precautions Precautions R clavicle fracture 1 week ago . PT-OP-B Current Condition Start: 10/24/22 18:38 Freq: Status: Active Protocol: Document 10/30/22 09:55 LRN (Rec: 10/30/22 12:51 LRN [id number]) Current Condition History of Current Condition Onset Date ~6 months ago Current Complaints Urinary urgency with occasional leakage History of Current Condition Was having urinary urgency and had trouble holding urine when flying. Tried use of pessary for a few weeks, then had Bladder lift 2019 with at [facility], and had an oophorectormy and hysterectomy . No therapy afterwards. Went to bladder class and did ex's before surgery. Now occasionally straining is causing bladder to drop and sometimes can't get to bathroom fast enough and she wets her underwear. Treatment Goals Patient/Caregiver Goals Pt goal is to learn bladder ex 's, which ex's to keep bladder toned to prevent droppage of bladder. Feels it after bowel movent, she can palpate it and pushes it back up. Has 2 visits scheduled. Current Functional Impairments (Reported) Functional Limitations- ADL's Sometimes not able to make it to bathroom in time to urinate . Personal Factors Other Personal Factors That May Effect Borderline Osteoporosis. Therapy/Recovery Retired RN. 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 PT-OP-C Subjective Start: 10/24/22 18:38 Freq: Status: Active Protocol: Document 12/08/22 11:20 LRN (Rec: 12/08/22 12:29 LRN [id number]) OP-PT Subjective Patient Comments Patient Comments No issues with constipation, stool type 3 or 6. Drinking 60-64 oz's a day. Bowel massage seemed to cause her diahrrea type stool. PT-OP-I Pelvic Floor Start: 10/24/22 18:38 Freq: Status: Active Protocol: Document 11/06/22 10:42 LRN (Rec: 11/06/22 12:23 LRN [id number]) Pelvic Floor Assessment SEMG (uV) Baseline 1.6 Quick Contraction 6.4 10 Second Contraction 8.9 Recruitment Pattern Good Relaxation Good Holding Fair Stability of Hold Fair SEMG Stability of Rest Poor/Slow Comments Pelvic Floor Comments EMG per vaginal electrode ( above is Avg strength): Resting: Avg MAX is 2.6 uV's. Quick Flicks: Avg MAX is 10.5 uV's (10 & 20 reps). 10 sec Hold: Avg MAX is 14.7 uV's (10 & 20 reps. 10 sec Hold Rest: Avg 3.1 uV' s and MAX 12.4 uV's PT-OP-J Posture/Palpation/Skin Start: 10/24/22 18:38 Freq: Status: Active Protocol: Document 10/30/22 09:55 LRN (Rec: 10/30/22 12:51 LRN [id number]) Posture Evaluation Position Standing Shoulder Posture (L) Elevated Pelvis Posture Posterior Tilted,(L) Rotated Posterior Hip Posture (R) Internally Rotated,(L) Externally Rotated Comments Posture Comments L arm in sling, pt Guarded in thoracic region due to reported possible L rib fractures (non-diagnosed). PT-OP-K Range of Motion Start: 10/24/22 18:38 Freq: Status: Active Protocol: Document 10/30/22 09:55 LRN (Rec: 10/30/22 12:51 LRN [id number]) Lumbar Spine Range of Motion Lumbar Spine Active Degrees Testing Position Standing Flexion 87 Extension 15 Rotation Left 20 Rotation Right 5 Lateral Flexion Left 8 Lateral Flexion Right 13 ROM Limitations Soft Tissue Tightness,Pain Comments NOTE: Pt thinks she has fx'd ribs on L side. Hip Goniometric Range of Motion Hip Right Passive Testing Position Sitting Internal Rotation 48 External Rotation 10 Left Passive Testing Position Sitting Internal Rotation 38 External Rotation 22 PT-OP-M Strength Start: 10/24/22 18:38 Freq: Status: Active Protocol: Document 10/30/22 09:55 LRN (Rec: 10/30/22 12:51 LRN [id number]) Trunk Strength Trunk Manual Muscle Testing Core Stabilization Deferred due to fx'd L Clavicle pain with positioning in supine. Hip Strength Hip Manual Muscle Testing Right External Rotation 4+ Good+ Internal Rotation 4+ Good+ Comments Testing deferred except as indicated above due to fx'd L Clavicle pain with positioning in supine. Left External Rotation 5 Normal Internal Rotation 4+ Good+ Comments Testing deferred except as indicated above due to fx'd L Clavicle pain with positioning in supine. PT-OP-Q Treatments Start: 10/24/22 18:38 Freq: Status: Active Protocol: Document 12/08/22 11:20 LRN (Rec: 12/08/22 12:29 LRN [id number]) Therapeutic Exercises Supine Exercises Ball Squeeze w/PF/Breathing Supine Exercise Name Ball squeeze w/PF/3 Breath Equipment Used Wedge, ball Reps/Minutes 5 SH x 5 with 3 roll in/outs for rest period Bridge with PF/Breathing Supine Exercise Name PF/Bridge/3 breaths - active roll in/outs when at rest Equipment Used Lev 2 TB Reps/Minutes 10 SH x 10, 3 roll in/outs for rest period as TB allows Comments Much extra time needed for training. LE Roll in/out Supine Exercise Name LE Roll in/outs/DB Reps/Minutes 10 SH, 5x w/PF ><, 5x w/o PF > < Comments Extra time taken for review w/ phys & v cuing for abdominal vs chest breath Bowel massage Supine Exercise Name Verbal review of Bowel massage Reps/Minutes 3' Self-Care/Home Management Treatment Education Other Education Discussed pt's initial assessment. Discussed areas of concern to limit cystocele/rectocele. Discussed possible changes with fascia after hyste & oophorectomy. Discussed use of pessary and difference with round or cube pessary. Activities Self-Care/Home Management Activities I/S pt in PF/Bridging & Ball squeeze ex with rest period of LE roll in/out. PT-OP-T Assessment and Plan Start: 10/24/22 18:38 Freq: Status: Active Protocol: Document 12/08/22 11:20 LRN (Rec: 12/08/22 12:29 LRN [id number]) Physical Therapy Assessment Goals Three Impairment Urinay leakage with urgency. Impairment Sometimes not able to make it to bathroom in time to urinate . Pt leaks 3-4x/week. Short Term Goal (STG) Pt will be educated in normal voiding times and amounts and will modify behaviour to void on 1st or 2nd urinary urge. STG Duration 11/27/22 [facility] Goal (LTG) Pt will improve PF strength with decrease in urinary leakage and wetting of underwear. LTG Duration 01/28/23 Two Impairment Urinary Urgency sometimes results in urinary leakage Impairment Sometimes pt is not able to make it to the bathroom on air flights. Short Term Goal (STG) Pt will be educated in BM massage and proper bowel care and urinary urge deference technique. STG Duration 11/27/22 [facility] Goal (LTG) Pt will report decreased onset of urinary urgency with improvement in bowel care and use of urge deference technique. LTG Duration 01/28/23 One Impairment Pt lacks self care HEP. Short Term Goal (STG) Pt educated in proper transfers to lessen core abdominal pressure. 11/06/22: Discussed core abdominal pressures with BM's. STG Duration 11/27/22 progressing 11/06/22 [employer] Goal (LTG) Pt will be independent in appropriate self care HEP of PF strengthening & hip stretches. Pt will be independent in appropriate core strengthening ex's. 11/06/22: I/S pt in Kegels in sup and standing with hips elevated above level of bladder. 12/08/22; I/S pt in PF contractions w/Bridging and w/ ball squeeze with hips elevated. LTG Duration 01/28/23 progressing 12/08/22. Assessment Summary Assessment Pt has grade 3 Cystocele and palpable rectocele, s/p hysterectomy and oophorectomy . Pt had many questions today regarding her condition, effects on PF of her post surgery, pessary, alternatives to treatment (seek assessment by OBGYN or Urologist). Pt did some of the bowel program but she didn't seem to need it due to no constipation. She felt bowel massage made her have more diahrrea, therefore dud not do. Pt leaving after next visit for trip and is concerned not progressing quickly enough to complete rehab in 8 sessions due to learning so much and more to know. Pt anxious about not completing therapy in 8 visits , but was reassured that as she progresses therapy can continue. Physical Therapy Plan Frequency and Duration Frequency of Treatment 1x/Week Plan of Care Start Date 10/30/22 Plan of Care End Date 01/28/23 Next Visit Focus/Plan Next Note Type Treatment Note Next Visit Plan Start with EMG biofeedback ( Possible use of ES for PF contraction awareness, although focus needs to be on coordination of PF contractions with regular & deep breathing). Review PF/ Bridging & Ball squeeze ex with rest of LE roll in/out. Review and assess response to urge deference technique. Focus on strengthening Quick Flick over than Long Holds. Review of Bladder diary and education/discussion of behaviour modification (proper posture), Educate normal voiding times and amounts, Ther act training: coordination of PF/TA/ transfers. Ther Ex for hip stretches of R >L ER, L>R IR & jennifer hip AD stretch. Manual: Hip stretches, PF stretch to close vaginal opening. Assess abdominal region for tightness/ restrictions in 2-4 more weeks . Caution: possible L rib fx's causing pain limiting rib excursion
--- NOTE | 2022-12-18 16:58 | PT.OTN ---
Current Diagnoses Other specified disorders of muscle (12/18/22) Physical Therapy Treatment Note PT-OP-A Visit Information Start: 10/24/22 18:38 Freq: Status: Active Protocol: Document 12/18/22 13:52 LRN (Rec: 12/18/22 16:57 LRN [id number]) Out-Patient Physical Therapy Visit Information Visit Information Visit Type Treatment Note Visit Start Time 13:52 Visit Stop Time 14:31 Total Visit Minutes 39 Visit Number 5 Evaluation Information Evaluation Date 10/30/22 Precautions Precautions R clavicle fracture 1 week ago . PT-OP-B Current Condition Start: 10/24/22 18:38 Freq: Status: Active Protocol: Document 10/30/22 09:55 LRN (Rec: 10/30/22 12:51 LRN [id number]) Current Condition History of Current Condition Onset Date ~6 months ago Current Complaints Urinary urgency with occasional leakage History of Current Condition Was having urinary urgency and had trouble holding urine when flying. Tried use of pessary for a few weeks, then had Bladder lift 2019 with at [facility], and had an oophorectormy and hysterectomy . No therapy afterwards. Went to bladder class and did ex's before surgery. Now occasionally straining is causing bladder to drop and sometimes can't get to bathroom fast enough and she wets her underwear. Treatment Goals Patient/Caregiver Goals Pt goal is to learn bladder ex 's, which ex's to keep bladder toned to prevent droppage of bladder. Feels it after bowel movent, she can palpate it and pushes it back up. Has 2 visits scheduled. Current Functional Impairments (Reported) Functional Limitations- ADL's Sometimes not able to make it to bathroom in time to urinate . Personal Factors Other Personal Factors That May Effect Borderline Osteoporosis. Therapy/Recovery Retired RN. 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 PT-OP-C Subjective Start: 10/24/22 18:38 Freq: Status: Active Protocol: Document 12/18/22 13:52 LRN (Rec: 12/18/22 16:57 LRN [id number]) OP-PT Subjective Patient Comments Patient Comments Regular with BM's and normal ( type 4), Drinks regularly 6-8 cups a day of water. Pt wgt is 140# (should drink 70 oz/ day). 1-2x this week had to change undergarment due to urinary leakage. No leakage in the middle of the night... not usually. Leaving tomorrow for vacation and will return in 2 wks, ~01/06/23. PT-OP-I Pelvic Floor Start: 10/24/22 18:38 Freq: Status: Active Protocol: Document 12/18/22 13:52 LRN (Rec: 12/18/22 16:57 LRN [id number]) Pelvic Floor Assessment SEMG (uV) Baseline 1.6 Holding Fair Comments Pelvic Floor Comments Measurements taken on wedge ( baseline on wedge after long holds - 3.0 uV's). PF contraction hold 6 secs before decreasing. PT-OP-J Posture/Palpation/Skin Start: 10/24/22 18:38 Freq: Status: Active Protocol: Document 10/30/22 09:55 LRN (Rec: 10/30/22 12:51 LRN [id number]) Posture Evaluation Position Standing Shoulder Posture (L) Elevated Pelvis Posture Posterior Tilted,(L) Rotated Posterior Hip Posture (R) Internally Rotated,(L) Externally Rotated Comments Posture Comments L arm in sling, pt Guarded in thoracic region due to reported possible L rib fractures (non-diagnosed). PT-OP-K Range of Motion Start: 10/24/22 18:38 Freq: Status: Active Protocol: Document 10/30/22 09:55 LRN (Rec: 10/30/22 12:51 LRN [id number]) Lumbar Spine Range of Motion Lumbar Spine Active Degrees Testing Position Standing Flexion 87 Extension 15 Rotation Left 20 Rotation Right 5 Lateral Flexion Left 8 Lateral Flexion Right 13 ROM Limitations Soft Tissue Tightness,Pain Comments NOTE: Pt thinks she has fx'd ribs on L side. Hip Goniometric Range of Motion Hip Right Passive Testing Position Sitting Internal Rotation 48 External Rotation 10 Left Passive Testing Position Sitting Internal Rotation 38 External Rotation 22 PT-OP-M Strength Start: 10/24/22 18:38 Freq: Status: Active Protocol: Document 10/30/22 09:55 LRN (Rec: 10/30/22 12:51 LRN [id number]) Trunk Strength Trunk Manual Muscle Testing Core Stabilization Deferred due to fx'd L Clavicle pain with positioning in supine. Hip Strength Hip Manual Muscle Testing Right External Rotation 4+ Good+ Internal Rotation 4+ Good+ Comments Testing deferred except as indicated above due to fx'd L Clavicle pain with positioning in supine. Left External Rotation 5 Normal Internal Rotation 4+ Good+ Comments Testing deferred except as indicated above due to fx'd L Clavicle pain with positioning in supine. PT-OP-Q Treatments Start: 10/24/22 18:38 Freq: Status: Active Protocol: Document 12/18/22 13:52 LRN (Rec: 12/18/22 16:57 LRN [id number]) Neuro Re-Education Treatment Other Activities PF on wedge Details Quick Flicks/long holds, on wedge, legs on bolster Comments Decrease in strength of contraction after 6 secs and pt had trouble returning to resting tone, even with visual biofeedback. Pt then used biofeedback to relax legs to return to resting. PF Details Quick Flicks legs on bolster Reps/Duration 20x , extra time for training Comments 10 reps (uV's): Avg 19.2, Max 60.3. 20 reps (uV's): Avg 22 , Max 65. Self-Care/Home Management Treatment Activities Self-Care/Home Management Activities Pt to continue PF contraction with transfers. PF Quick flicks > Long holds. Breathing while performing PF contractions, and LE roll in/ outs with PF contractions. PT-OP-T Assessment and Plan Start: 10/24/22 18:38 Freq: Status: Active Protocol: Document 12/18/22 13:52 LRN (Rec: 12/18/22 16:57 LRN [id number]) Physical Therapy Assessment Goals Three Impairment Urinay leakage with urgency. Impairment Sometimes not able to make it to bathroom in time to urinate . Pt leaks 3-4x/week. Short Term Goal (STG) Pt will be educated in normal voiding times and amounts and will modify behaviour to void on 1st or 2nd urinary urge. 12/18/22: Pt educated in normal voiding times, every 3-4 hrs and must void after 1st or 2nd urge. STG Duration 11/27/22 (12/18/22: MET GOAL) [employer] Goal (LTG) Pt will improve PF strength with decrease in urinary leakage and wetting of underwear. LTG Duration 01/28/23 Two Impairment Urinary Urgency sometimes results in urinary leakage Impairment Sometimes pt is not able to make it to the bathroom on air flights. Short Term Goal (STG) Pt will be educated in BM massage and proper bowel care and urinary urge deference technique. 12/01/22: BM massage & urge deference education. STG Duration 11/27/22 (12/01/22: MET GOAL ) [employer] Goal (LTG) Pt will report decreased onset of urinary urgency with improvement in bowel care and use of urge deference technique. 12/18/22: Urinary leakage with urgency 1x this past week. LTG Duration 01/28/23 progressing 12/18/22 One Impairment Pt lacks self care HEP. Short Term Goal (STG) Pt educated in proper transfers to lessen core abdominal pressure. 11/06/22: Discussed core abdominal pressures with BM's. STG Duration 11/27/22 progressing 11/06/22 [facility] Goal (LTG) Pt will be independent in appropriate self care HEP of PF strengthening & hip stretches. Pt will be independent in appropriate core strengthening ex's. 11/06/22: I/S pt in Kegels in sup and standing with hips elevated above level of bladder. 12/08/22; I/S pt in PF contractions w/Bridging and w/ ball squeeze with hips elevated. LTG Duration 01/28/23 progressing 12/08/22. Assessment Summary Assessment Pt with grade 3 Cystocele and palpable rectocele, s/p hysterectomy and oophorectomy. Pt not bringing in bladder diary; therefore with discussion it appears pt has no involvement of Bowels and is drinking mostly appropriate fluids (64 of 70 oz's); therefore no further review of bladder diary will be done. Pt is having less frequent urinary leakage with a strong urge (1x this week). Pt demonstrated inconsistent PF relaxation after PF contraction while on wedge; possibly due to hips feeling like falling off bolster and therefore holding legs in place after contractions. Physical Therapy Plan Frequency and Duration Frequency of Treatment 1x/Week Plan of Care Start Date 10/30/22 Plan of Care End Date 01/28/23 Next Visit Focus/Plan Next Note Type Treatment Note Next Visit Plan Pt on vacation 2 wks, assess on return: urgency delay with use of delay technique while on vacation. Start with EMG biofeedback to determine if PF is tight or if pt can relax her PF after long holds. Try use of ES for PF contraction awareness. Focus needs to be on coordination of PF contractions with regular & deep breathing. Review PF/ Bridging & Ball squeeze ex with rest of LE roll in/out. Focus on strengthening Quick Flick over than Long Holds. Educate normal voiding times and amounts, Ther act training: coordination of PF/TA/ transfers. Ther Ex for hip stretches of R >L ER, L>R IR & jennifer hip AD stretch. Manual: Hip stretches, PF stretch to close vaginal opening. Assess abdominal region for tightness/ restrictions in 2-4 more weeks . Caution: possible L rib fx's causing pain limiting rib excursion
--- NOTE | 2023-01-13 17:33 | PT.OTN ---
Current Diagnoses Other specified disorders of muscle (01/13/23) Physical Therapy Treatment Note PT-OP-A Visit Information Start: 10/24/22 18:38 Freq: Status: Active Protocol: Document 01/13/23 14:44 LRN (Rec: 01/13/23 17:32 LRN [id number]) Out-Patient Physical Therapy Visit Information Visit Information Visit Type Treatment Note Visit Start Time 14:44 Visit Stop Time 15:26 Total Visit Minutes 42 Visit Number 6 Evaluation Information Evaluation Date 10/30/22 Precautions Precautions R clavicle fracture 1 week ago . PT-OP-B Current Condition Start: 10/24/22 18:38 Freq: Status: Active Protocol: Document 10/30/22 09:55 LRN (Rec: 10/30/22 12:51 LRN [id number]) Current Condition History of Current Condition Onset Date ~6 months ago Current Complaints Urinary urgency with occasional leakage History of Current Condition Was having urinary urgency and had trouble holding urine when flying. Tried use of pessary for a few weeks, then had Bladder lift 2019 with at [facility], and had an oophorectormy and hysterectomy . No therapy afterwards. Went to bladder class and did ex's before surgery. Now occasionally straining is causing bladder to drop and sometimes can't get to bathroom fast enough and she wets her underwear. Treatment Goals Patient/Caregiver Goals Pt goal is to learn bladder ex 's, which ex's to keep bladder toned to prevent droppage of bladder. Feels it after bowel movent, she can palpate it and pushes it back up. Has 2 visits scheduled. Current Functional Impairments (Reported) Functional Limitations- ADL's Sometimes not able to make it to bathroom in time to urinate . Personal Factors Other Personal Factors That May Effect Borderline Osteoporosis. Therapy/Recovery Retired RN. 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 PT-OP-C Subjective Start: 10/24/22 18:38 Freq: Status: Active Protocol: Document 01/13/23 14:44 LRN (Rec: 01/13/23 17:32 LRN [id number]) OP-PT Subjective Patient Comments Patient Comments Been pretty good. ONe time a week can't quite make it to the bathroom. Hasn't noticed a feeling of bulging in perineurm. PT-OP-I Pelvic Floor Start: 10/24/22 18:38 Freq: Status: Active Protocol: Document 01/13/23 14:44 LRN (Rec: 01/13/23 17:32 LRN [id number]) Pelvic Floor Assessment SEMG (uV) Baseline 0.1 Quick Contraction 11.8 10 Second Contraction 5.2 Recruitment Pattern Good Relaxation Fair Holding Poor/Slow Stability of Hold Poor/Slow SEMG Stability of Rest Fair Comments Pelvic Floor Comments Contraction values are for 10 reps. 20 reps: Quick Flicks: Work 11.1 uVs, Rest 3.5 uV's Long Holds: Work uVs, Rest 3.5 uV's PT-OP-J Posture/Palpation/Skin Start: 10/24/22 18:38 Freq: Status: Active Protocol: Document 10/30/22 09:55 LRN (Rec: 10/30/22 12:51 LRN [id number]) Posture Evaluation Position Standing Shoulder Posture (L) Elevated Pelvis Posture Posterior Tilted,(L) Rotated Posterior Hip Posture (R) Internally Rotated,(L) Externally Rotated Comments Posture Comments L arm in sling, pt Guarded in thoracic region due to reported possible L rib fractures (non-diagnosed). PT-OP-K Range of Motion Start: 10/24/22 18:38 Freq: Status: Active Protocol: Document 10/30/22 09:55 LRN (Rec: 10/30/22 12:51 LRN [id number]) Lumbar Spine Range of Motion Lumbar Spine Active Degrees Testing Position Standing Flexion 87 Extension 15 Rotation Left 20 Rotation Right 5 Lateral Flexion Left 8 Lateral Flexion Right 13 ROM Limitations Soft Tissue Tightness,Pain Comments NOTE: Pt thinks she has fx'd ribs on L side. Hip Goniometric Range of Motion Hip Right Passive Testing Position Sitting Internal Rotation 48 External Rotation 10 Left Passive Testing Position Sitting Internal Rotation 38 External Rotation 22 PT-OP-M Strength Start: 10/24/22 18:38 Freq: Status: Active Protocol: Document 10/30/22 09:55 LRN (Rec: 10/30/22 12:51 LRN [id number]) Trunk Strength Trunk Manual Muscle Testing Core Stabilization Deferred due to fx'd L Clavicle pain with positioning in supine. Hip Strength Hip Manual Muscle Testing Right External Rotation 4+ Good+ Internal Rotation 4+ Good+ Comments Testing deferred except as indicated above due to fx'd L Clavicle pain with positioning in supine. Left External Rotation 5 Normal Internal Rotation 4+ Good+ Comments Testing deferred except as indicated above due to fx'd L Clavicle pain with positioning in supine. PT-OP-Q Treatments Start: 10/24/22 18:38 Freq: Status: Active Protocol: Document 01/13/23 14:44 LRN (Rec: 01/13/23 17:32 LRN [id number]) Therapeutic Exercises Supine Exercises PF contractions Supine Exercise Name PF resting tone, quick flicks, Long holds (max, 80% max) Neuro Re-Education Treatment Other Activities PF awareness Details PF Stim for awareness of contraction Reps/Duration 8' Comments Pt tolerated intensity of 27 ( 100pps, continuous) but was not aware of contraction being performed. Setting changed to 5', 5 on 10 off, intensity 21 (100 pps), pt was not sure if she felt a PF contraction. Pt did some contractions with intensity at 19 (100 pps) but did not feel she gained awareness of PF contraction. PF on wedge Details Quick Flicks/long holds, on wedge, legs on bolster Comments Decrease in strength of contraction after 6 secs and pt had trouble returning to resting tone, even with visual biofeedback. Pt then used biofeedback to relax legs to return to resting. PT-OP-T Assessment and Plan Start: 10/24/22 18:38 Freq: Status: Active Protocol: Document 01/13/23 14:44 LRN (Rec: 01/13/23 17:32 LRN [id number]) Physical Therapy Assessment Goals Three Impairment Urinay leakage with urgency. Impairment Sometimes not able to make it to bathroom in time to urinate . Pt leaks 3-4x/week. Short Term Goal (STG) Pt will be educated in normal voiding times and amounts and will modify behaviour to void on 1st or 2nd urinary urge. 12/18/22: Pt educated in normal voiding times, every 3-4 hrs and must void after 1st or 2nd urge. STG Duration 11/27/22 (12/18/22: MET GOAL) White Sugar Supervisor Goal (LTG) Pt will improve PF strength with decrease in urinary leakage and wetting of underwear. LTG Duration 01/28/23 Two Impairment Urinary Urgency sometimes results in urinary leakage Impairment Sometimes pt is not able to make it to the bathroom on air flights. Short Term Goal (STG) Pt will be educated in BM massage and proper bowel care and urinary urge deference technique. 12/01/22: BM massage & urge deference education. STG Duration 11/27/22 (12/01/22: MET GOAL ) White Sugar Supervisor Goal (LTG) Pt will report decreased onset of urinary urgency with improvement in bowel care and use of urge deference technique. 12/18/22: Urinary leakage with urgency 1x this past week. LTG Duration 01/28/23 progressing 12/18/22 One Impairment Pt lacks self care HEP. Short Term Goal (STG) Pt educated in proper transfers to lessen core abdominal pressure. 11/06/22: Discussed core abdominal pressures with BM's. STG Duration 11/27/22 progressing 11/06/22 White Sugar Supervisor Goal (LTG) Pt will be independent in appropriate self care HEP of PF strengthening & hip stretches. Pt will be independent in appropriate core strengthening ex's. 11/06/22: I/S pt in Kegels in sup and standing with hips elevated above level of bladder. 12/08/22; I/S pt in PF contractions w/Bridging and w/ ball squeeze with hips elevated. LTG Duration 01/28/23 progressing 12/08/22. Assessment Summary Assessment Pt with grade 3 Cystocele and palpable rectocele, s/p hysterectomy and oophorectomy. Pt returning after ~ 2 weeks demonstrates weakness of PF per EMG assessment/exercise and very little tightness noted, with pt able to fairly quickly relax her PF to resting tone. Pt feels like she did better on vacation and was having only 1 accident per week, like before. She felt with PF contractions that she is holding her breath on contraction with Quick Flicks, but was able to breath through long holds. Pt was not as consistent with her PF exercises as she admits; therefore her PF strength is not as good as previously assessed. Physical Therapy Plan Frequency and Duration Frequency of Treatment 1x/Week Plan of Care Start Date 10/30/22 Plan of Care End Date 01/28/23 Next Visit Focus/Plan Next Note Type Progress Note Next Visit Plan PN next visit (appt after next on 02/02/23). EMG biofeedback for PF strengthening for long holds ( start 80% effort). Discuss trying to use ES for PF contraction awareness again ( try 50pps). Focus needs to be on coordination of PF contractions with regular & deep breathing. Cont PF/Bridging & Ball squeeze ex with rest of LE roll in/out strengthening. Focus on strengthening Quick Flick over than Long Holds. Educate: normal voiding times and amounts, Ther act training: coordination of PF/TA/ transfers. Ther Ex: hip stretches of R>L ER, L>R IR & jennifer hip AD. Manual: Hip stretches, PF stretch to close vaginal opening. Assess abdominal region for tightness/ restrictions in 2-4 more weeks . Caution: possible L rib fx's causing pain limiting rib excursion
--- NOTE | 2023-02-02 18:10 | PT.OTN ---
Current Diagnoses Other specified disorders of muscle (02/02/23) Physical Therapy Treatment Note PT-OP-A Visit Information Start: 10/24/22 18:38 Freq: Status: Active Protocol: Document 02/02/23 09:51 LRN (Rec: 02/02/23 12:13 LRN [id number]) Out-Patient Physical Therapy Visit Information Visit Information Visit Type Treatment Note Visit Start Time 09:51 Visit Stop Time 10:34 Total Visit Minutes 45 Visit Number 7 Evaluation Information Evaluation Date 10/30/22 Precautions Precautions R clavicle fracture 1 week ago . PT-OP-B Current Condition Start: 10/24/22 18:38 Freq: Status: Active Protocol: Document 10/30/22 09:55 LRN (Rec: 10/30/22 12:51 LRN [id number]) Current Condition History of Current Condition Onset Date ~6 months ago Current Complaints Urinary urgency with occasional leakage History of Current Condition Was having urinary urgency and had trouble holding urine when flying. Tried use of pessary for a few weeks, then had Bladder lift 2019 with at [facility], and had an oophorectormy and hysterectomy . No therapy afterwards. Went to bladder class and did ex's before surgery. Now occasionally straining is causing bladder to drop and sometimes can't get to bathroom fast enough and she wets her underwear. Treatment Goals Patient/Caregiver Goals Pt goal is to learn bladder ex 's, which ex's to keep bladder toned to prevent droppage of bladder. Feels it after bowel movent, she can palpate it and pushes it back up. Has 2 visits scheduled. Current Functional Impairments (Reported) Functional Limitations- ADL's Sometimes not able to make it to bathroom in time to urinate . Personal Factors Other Personal Factors That May Effect Borderline Osteoporosis. Therapy/Recovery Retired RN. 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 PT-OP-C Subjective Start: 10/24/22 18:38 Freq: Status: Active Protocol: Document 02/02/23 09:51 LRN (Rec: 02/02/23 12:13 LRN [id number]) OP-PT Subjective Patient Comments Patient Comments Can feel bladder is low, but not bulging out of perineum. Occasionally feels it buging in perineum, most of the time doesn't notice it. Patient Questionnaires Pelvic Pain and Urgency/Frequency Patient Symptom Scale Pelvic Pain Score 4 PT-OP-I Pelvic Floor Start: 10/24/22 18:38 Freq: Status: Active Protocol: Document 01/13/23 14:44 LRN (Rec: 01/13/23 17:32 LRN [id number]) Pelvic Floor Assessment SEMG (uV) Baseline 0.1 Quick Contraction 11.8 10 Second Contraction 5.2 Recruitment Pattern Good Relaxation Fair Holding Poor/Slow Stability of Hold Poor/Slow SEMG Stability of Rest Fair Comments Pelvic Floor Comments Contraction values are for 10 reps. 20 reps: Quick Flicks: Work 11.1 uVs, Rest 3.5 uV's Long Holds: Work uVs, Rest 3.5 uV's PT-OP-J Posture/Palpation/Skin Start: 10/24/22 18:38 Freq: Status: Active Protocol: Document 10/30/22 09:55 LRN (Rec: 10/30/22 12:51 LRN [id number]) Posture Evaluation Position Standing Shoulder Posture (L) Elevated Pelvis Posture Posterior Tilted,(L) Rotated Posterior Hip Posture (R) Internally Rotated,(L) Externally Rotated Comments Posture Comments L arm in sling, pt Guarded in thoracic region due to reported possible L rib fractures (non-diagnosed). PT-OP-K Range of Motion Start: 10/24/22 18:38 Freq: Status: Active Protocol: Document 10/30/22 09:55 LRN (Rec: 10/30/22 12:51 LRN [id number]) Lumbar Spine Range of Motion Lumbar Spine Active Degrees Testing Position Standing Flexion 87 Extension 15 Rotation Left 20 Rotation Right 5 Lateral Flexion Left 8 Lateral Flexion Right 13 ROM Limitations Soft Tissue Tightness,Pain Comments NOTE: Pt thinks she has fx'd ribs on L side. Hip Goniometric Range of Motion Hip Right Passive Testing Position Sitting Internal Rotation 48 External Rotation 10 Left Passive Testing Position Sitting Internal Rotation 38 External Rotation 22 PT-OP-M Strength Start: 10/24/22 18:38 Freq: Status: Active Protocol: Document 10/30/22 09:55 LRN (Rec: 10/30/22 12:51 LRN [id number]) Trunk Strength Trunk Manual Muscle Testing Core Stabilization Deferred due to fx'd L Clavicle pain with positioning in supine. Hip Strength Hip Manual Muscle Testing Right External Rotation 4+ Good+ Internal Rotation 4+ Good+ Comments Testing deferred except as indicated above due to fx'd L Clavicle pain with positioning in supine. Left External Rotation 5 Normal Internal Rotation 4+ Good+ Comments Testing deferred except as indicated above due to fx'd L Clavicle pain with positioning in supine. PT-OP-Q Treatments Start: 10/24/22 18:38 Freq: Status: Active Protocol: Document 02/02/23 09:51 LRN (Rec: 02/02/23 12:13 LRN [id number]) Therapeutic Exercises Supine Exercises Hands/knees push Supine Exercise Name Hands/knees push Side bilateral Reps/Minutes 10SH x 10 LE Roll in/out Supine Exercise Name LE Roll in/outs/DB Reps/Minutes 10 SH, 5x w/PF , alternating with hands/knees push Comments Extra time taken for review w/ phys & v cuing for abdominal vs chest breath Other Exercises PF contractions/transfer Other Exercise Name PF contractions with transfers Therapeutic Activity Therapeutic Activity Stand<>sit<>supine Name Stand<>sit, sit<>supine, shifting side<>side, with proper breathing. Reps/Minutes 2-3x Comments Extra time taken at each step for review of transfers. Much cuing needed throughout transfer. Self-Care/Home Management Treatment Education Patient Education Home Exercise Program Other Education Discussed pt's current status and progress towards goals. Reviewed urinary delay technique and discussed fluid intake and output habits, normal times between voids and impact of drinking before walks, bedtime and timing of drinking fluids for least impact. Activities Self-Care/Home Management Activities Issued HEP: Hands/knee push. PT-OP-T Assessment and Plan Start: 10/24/22 18:38 Freq: Status: Active Protocol: Document 02/02/23 09:51 LRN (Rec: 02/02/23 12:13 LRN [id number]) Physical Therapy Assessment Rehab Potential Rehabilitation Potential Good Evaluation Complexity Number of Personal Factors/Comorbidities 1-2 Number of Body Systems Impaired 4 or More Clinical Presentation at Evaluation Evolving Impairments Impairments Activity Tolerance,Strength, Transfers Goals Three Impairment Urinay leakage with urgency. Impairment Sometimes not able to make it to bathroom in time to urinate . Pt leaks 3-4x/week. Short Term Goal (STG) Pt will be educated in normal voiding times and amounts and will modify behaviour to void on 1st or 2nd urinary urge. 12/18/22: Pt educated in normal voiding times, every 3-4 hrs and must void after 1st or 2nd urge. STG Duration 11/27/22 (12/18/22: MET GOAL) Mcfp Goal (LTG) Pt will improve PF strength with decrease in urinary leakage and wetting of underwear. 02/03/20: Small leaks still 3- 4x/week. Leaks trying to pull pants down. Not since doing therapy has she wet her underwear, just a small bit. Somtimes waits to long and more often once leaks, doesn't have the urge anymore. LTG Duration 01/28/23 (02/02/23: Partailly met goal) Two Impairment Urinary Urgency sometimes results in urinary leakage Impairment Sometimes pt is not able to make it to the bathroom on air flights. Short Term Goal (STG) Pt will be educated in BM massage and proper bowel care and urinary urge deference technique. 12/01/22: BM massage & urge deference education. STG Duration 11/27/22 (12/01/22: MET GOAL ) Mcfp Goal (LTG) Pt will report decreased onset of urinary urgency with improvement in bowel care and use of urge deference technique. 12/18/22: Urinary leakage with urgency 1x this past week. 02/02/23: Last 3 months has not had problem making it to the bathroom on air flights. Bowels are daily. Hasn't been consistent with stopping and deep breathing part of urgency deference techique LTG Duration 01/28/23 02/02/23: Goal partially met. One Impairment Pt lacks self care HEP. Short Term Goal (STG) Pt educated in proper transfers to lessen core abdominal pressure. 11/06/22: Discussed core abdominal pressures with BM's. STG Duration 11/27/22 progressing 11/06/22 Mcfp Goal (LTG) Pt will be independent in appropriate self care HEP of PF strengthening & hip stretches. Pt will be independent in appropriate core strengthening ex's. 11/06/22: I/S pt in Kegels in sup and standing with hips elevated above level of bladder. 12/08/22; I/S pt in PF contractions w/Bridging and w/ ball squeeze with hips elevated. LTG Duration 01/28/23 (02/02/23: MET GOAL for current condition) Assessment Summary Assessment Pt attends therapy after ~3 weeks absence due to multiple trips. She is being seen today for reassessment and her new POC for discharge to a HEP today. Pt PUF score shows improvement from 8 to 4 (of 14 max). The pt feels she is ready at this time to be discharged to her self care HEP and did not feel she needed extra copies of her HEP . Initially the pt's progress was slow due to her lack of tolerance to positioning and ex from her rib fractures. The pt would benefit from further PF strengthening training, especially with use of EStim to the PF. The pt reports maybe at a later date when she is not travelling as much she might return for further PF strengthening. Physical Therapy Plan Frequency and Duration Frequency of Treatment 1x/Week Plan of Care Start Date 01/28/23 Plan of Care End Date 02/02/23 Therapeutic Interventions Therapeutic Interventions Home Exercise Program,Self- Care/Home Management, Therapeutic Exercises Discharge Physical Therapy Discharge Reasons Patient Request Discharge Comments The pt would benefit from physical therapy at a later date when she is not travelling as much so that she can focus more on her therapy program. Pt states she might return for further PF strengthening.
--- NOTE | 2023-02-02 18:10 | PT.OPPOC ---
Physical, Occupational & Speech Therapy At [facility] Current Diagnoses Other specified disorders of muscle (02/02/23) Visit Care Team Role Provider Type Sofia Morgan MD Attending Provider Physician Family Provider Primary Care Provider Referring Provider Specialty: Family Practice Address: [address] [place] [address], [id number] Email: [email or web address] Plan Of Care PT-OP-T Assessment and Plan Start: 10/24/22 18:38 Freq: Status: Active Protocol: Document 02/02/23 09:51 LRN (Rec: 02/02/23 12:13 LRN [id number]) Physical Therapy Assessment Rehab Potential Rehabilitation Potential Good Evaluation Complexity Number of Personal Factors/Comorbidities 1-2 Number of Body Systems Impaired 4 or More Clinical Presentation at Evaluation Evolving Impairments Impairments Activity Tolerance,Strength, Transfers Goals Three Impairment Urinay leakage with urgency. Impairment Sometimes not able to make it to bathroom in time to urinate . Pt leaks 3-4x/week. Short Term Goal (STG) Pt will be educated in normal voiding times and amounts and will modify behaviour to void on 1st or 2nd urinary urge. 12/18/22: Pt educated in normal voiding times, every 3-4 hrs and must void after 1st or 2nd urge. STG Duration 11/27/22 (12/18/22: MET GOAL) Record Searcher Goal (LTG) Pt will improve PF strength with decrease in urinary leakage and wetting of underwear. 02/03/20: Small leaks still 3- 4x/week. Leaks trying to pull pants down. Not since doing therapy has she wet her underwear, just a small bit. Somtimes waits to long and more often once leaks, doesn't have the urge anymore. LTG Duration 01/28/23 (02/02/23: Partailly met goal) Two Impairment Urinary Urgency sometimes results in urinary leakage Impairment Sometimes pt is not able to make it to the bathroom on air flights. Short Term Goal (STG) Pt will be educated in BM massage and proper bowel care and urinary urge deference technique. 12/01/22: BM massage & urge deference education. STG Duration 11/27/22 (12/01/22: MET GOAL ) Record Searcher Goal (LTG) Pt will report decreased onset of urinary urgency with improvement in bowel care and use of urge deference technique. 12/18/22: Urinary leakage with urgency 1x this past week. 02/02/23: Last 3 months has not had problem making it to the bathroom on air flights. Bowels are daily. Hasn't been consistent with stopping and deep breathing part of urgency deference techique LTG Duration 01/28/23 02/02/23: Goal partially met. One Impairment Pt lacks self care HEP. Short Term Goal (STG) Pt educated in proper transfers to lessen core abdominal pressure. 11/06/22: Discussed core abdominal pressures with BM's. STG Duration 11/27/22 progressing 11/06/22 Record Searcher Goal (LTG) Pt will be independent in appropriate self care HEP of PF strengthening & hip stretches. Pt will be independent in appropriate core strengthening ex's. 11/06/22: I/S pt in Kegels in sup and standing with hips elevated above level of bladder. 12/08/22; I/S pt in PF contractions w/Bridging and w/ ball squeeze with hips elevated. LTG Duration 01/28/23 (02/02/23: MET GOAL for current condition) Assessment Summary Assessment Pt attends therapy after ~3 weeks absence due to multiple trips. She is being seen today for reassessment and her new POC for discharge to a HEP today. Pt PUF score shows improvement from 8 to 4 (of 14 max). The pt feels she is ready at this time to be discharged to her self care HEP and did not feel she needed extra copies of her HEP . Initially the pt's progress was slow due to her lack of tolerance to positioning and ex from her rib fractures. The pt would benefit from further PF strengthening training, especially with use of EStim to the PF. The pt reports maybe at a later date when she is not travelling as much she might return for further PF strengthening. Physical Therapy Plan Frequency and Duration Frequency of Treatment 1x/Week Plan of Care Start Date 01/28/23 Plan of Care End Date 02/02/23 Therapeutic Interventions Therapeutic Interventions Home Exercise Program,Self- Care/Home Management, Therapeutic Exercises Discharge Physical Therapy Discharge Reasons Patient Request Discharge Comments The pt would benefit from physical therapy at a later date when she is not travelling as much so that she can focus more on her therapy program. Pt states she might return for further PF strengthening. Plan of Care Dates Plan of Care Start Date 01/28/23 Plan of Care End Date 02/02/23 Electronically Signed by: Sabrina Mathews, PT 02/02/23 3510 If you are in agreement with this Plan of Care, please return a signed and dated copy. I have reviewed this Plan of Care and certify that the skilled therapy services above are required to meet the patient?s needs. Physician Signature Date Printed Name and Credentials Clinical Instructor Signature Printed Name and Credentials
--- NOTE | 2023-02-03 09:30 | PT.OPDS ---
Current Diagnoses Other specified disorders of muscle (02/02/23) Visit Care Team Role Provider Type Sofia oMrgan MD Attending Provider Physician Family Provider Primary Care Provider Referring Provider Specialty: Family Practice Address: [address] [place] [address], [facility] [place], [facility] Email: [email or web address] Visit Number Visit Number 7 Discharge Summary PT-OP-B Current Condition Start: 10/24/22 18:38 Freq: Status: Active Protocol: Document 10/30/22 09:55 LRN (Rec: 10/30/22 12:51 LRN [id number]) Current Condition History of Current Condition Onset Date ~6 months ago Current Complaints Urinary urgency with occasional leakage History of Current Condition Was having urinary urgency and had trouble holding urine when flying. Tried use of pessary for a few weeks, then had Bladder lift 2019 with at [facility], and had an oophorectormy and hysterectomy . No therapy afterwards. Went to bladder class and did ex's before surgery. Now occasionally straining is causing bladder to drop and sometimes can't get to bathroom fast enough and she wets her underwear. Treatment Goals Patient/Caregiver Goals Pt goal is to learn bladder ex 's, which ex's to keep bladder toned to prevent droppage of bladder. Feels it after bowel movent, she can palpate it and pushes it back up. Has 2 visits scheduled. Current Functional Impairments (Reported) Functional Limitations- ADL's Sometimes not able to make it to bathroom in time to urinate . Personal Factors Other Personal Factors That May Effect Borderline Osteoporosis. Therapy/Recovery Retired RN. 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 PT-OP-C Subjective Start: 10/24/22 18:38 Freq: Status: Active Protocol: Document 02/02/23 09:51 LRN (Rec: 02/02/23 12:13 LRN [id number]) OP-PT Subjective Patient Comments Patient Comments Can feel bladder is low, but not bulging out of perineum. Occasionally feels it buging in perineum, most of the time doesn't notice it. Patient Questionnaires Pelvic Pain and Urgency/Frequency Patient Symptom Scale Pelvic Pain Score 4 PT-OP-I Pelvic Floor Start: 10/24/22 18:38 Freq: Status: Active Protocol: Document 01/13/23 14:44 LRN (Rec: 01/13/23 17:32 LRN [id number]) Pelvic Floor Assessment SEMG (uV) Baseline 0.1 Quick Contraction 11.8 10 Second Contraction 5.2 Recruitment Pattern Good Relaxation Fair Holding Poor/Slow Stability of Hold Poor/Slow SEMG Stability of Rest Fair Comments Pelvic Floor Comments Contraction values are for 10 reps. 20 reps: Quick Flicks: Work 11.1 uVs, Rest 3.5 uV's Long Holds: Work uVs, Rest 3.5 uV's PT-OP-J Posture/Palpation/Skin Start: 10/24/22 18:38 Freq: Status: Active Protocol: Document 10/30/22 09:55 LRN (Rec: 10/30/22 12:51 LRN [id number]) Posture Evaluation Position Standing Shoulder Posture (L) Elevated Pelvis Posture Posterior Tilted,(L) Rotated Posterior Hip Posture (R) Internally Rotated,(L) Externally Rotated Comments Posture Comments L arm in sling, pt Guarded in thoracic region due to reported possible L rib fractures (non-diagnosed). PT-OP-K Range of Motion Start: 10/24/22 18:38 Freq: Status: Active Protocol: Document 10/30/22 09:55 LRN (Rec: 10/30/22 12:51 LRN [id number]) Lumbar Spine Range of Motion Lumbar Spine Active Degrees Testing Position Standing Flexion 87 Extension 15 Rotation Left 20 Rotation Right 5 Lateral Flexion Left 8 Lateral Flexion Right 13 ROM Limitations Soft Tissue Tightness,Pain Comments NOTE: Pt thinks she has fx'd ribs on L side. Hip Goniometric Range of Motion Hip Right Passive Testing Position Sitting Internal Rotation 48 External Rotation 10 Left Passive Testing Position Sitting Internal Rotation 38 External Rotation 22 PT-OP-M Strength Start: 10/24/22 18:38 Freq: Status: Active Protocol: Document 10/30/22 09:55 LRN (Rec: 10/30/22 12:51 LRN [id number]) Trunk Strength Trunk Manual Muscle Testing Core Stabilization Deferred due to fx'd L Clavicle pain with positioning in supine. Hip Strength Hip Manual Muscle Testing Right External Rotation 4+ Good+ Internal Rotation 4+ Good+ Comments Testing deferred except as indicated above due to fx'd L Clavicle pain with positioning in supine. Left External Rotation 5 Normal Internal Rotation 4+ Good+ Comments Testing deferred except as indicated above due to fx'd L Clavicle pain with positioning in supine. PT-OP-T Assessment and Plan Start: 10/24/22 18:38 Freq: Status: Active Protocol: Document 02/02/23 09:51 LRN (Rec: 02/02/23 12:13 LRN [id number]) Physical Therapy Assessment Rehab Potential Rehabilitation Potential Good Evaluation Complexity Number of Personal Factors/Comorbidities 1-2 Number of Body Systems Impaired 4 or More Clinical Presentation at Evaluation Evolving Impairments Impairments Activity Tolerance,Strength, Transfers Goals Three Impairment Urinay leakage with urgency. Impairment Sometimes not able to make it to bathroom in time to urinate . Pt leaks 3-4x/week. Short Term Goal (STG) Pt will be educated in normal voiding times and amounts and will modify behaviour to void on 1st or 2nd urinary urge. 12/18/22: Pt educated in normal voiding times, every 3-4 hrs and must void after 1st or 2nd urge. STG Duration 11/27/22 (12/18/22: MET GOAL) Custodial Goal (LTG) Pt will improve PF strength with decrease in urinary leakage and wetting of underwear. 02/03/20: Small leaks still 3- 4x/week. Leaks trying to pull pants down. Not since doing therapy has she wet her underwear, just a small bit. Somtimes waits to long and more often once leaks, doesn't have the urge anymore. LTG Duration 01/28/23 (02/02/23: Partailly met goal) Two Impairment Urinary Urgency sometimes results in urinary leakage Impairment Sometimes pt is not able to make it to the bathroom on air flights. Short Term Goal (STG) Pt will be educated in BM massage and proper bowel care and urinary urge deference technique. 12/01/22: BM massage & urge deference education. STG Duration 11/27/22 (12/01/22: MET GOAL ) Custodial Goal (LTG) Pt will report decreased onset of urinary urgency with improvement in bowel care and use of urge deference technique. 12/18/22: Urinary leakage with urgency 1x this past week. 02/02/23: Last 3 months has not had problem making it to the bathroom on air flights. Bowels are daily. Hasn't been consistent with stopping and deep breathing part of urgency deference techique LTG Duration 01/28/23 02/02/23: Goal partially met. One Impairment Pt lacks self care HEP. Short Term Goal (STG) Pt educated in proper transfers to lessen core abdominal pressure. 11/06/22: Discussed core abdominal pressures with BM's. STG Duration 11/27/22 progressing 11/06/22 Custodial Goal (LTG) Pt will be independent in appropriate self care HEP of PF strengthening & hip stretches. Pt will be independent in appropriate core strengthening ex's. 11/06/22: I/S pt in Kegels in sup and standing with hips elevated above level of bladder. 12/08/22; I/S pt in PF contractions w/Bridging and w/ ball squeeze with hips elevated. LTG Duration 01/28/23 (02/02/23: MET GOAL for current condition) Assessment Summary Assessment Pt attends therapy after ~3 weeks absence due to multiple trips. She is being seen today for reassessment and her new POC for discharge to a HEP today. Pt PUF score shows improvement from 8 to 4 (of 14 max). The pt feels she is ready at this time to be discharged to her self care HEP and did not feel she needed extra copies of her HEP . Initially the pt's progress was slow due to her lack of tolerance to positioning and ex from her rib fractures. The pt would benefit from further PF strengthening training, especially with use of EStim to the PF. The pt reports maybe at a later date when she is not travelling as much she might return for further PF strengthening. Physical Therapy Plan Frequency and Duration Frequency of Treatment 1x/Week Plan of Care Start Date 01/28/23 Plan of Care End Date 02/02/23 Therapeutic Interventions Therapeutic Interventions Home Exercise Program,Self- Care/Home Management, Therapeutic Exercises Discharge Physical Therapy Discharge Reasons Patient Request Discharge Comments The pt would benefit from physical therapy at a later date when she is not travelling as much so that she can focus more on her therapy program. Pt states she might return for further PF strengthening.
== END 2023-02-04 15:19 | disposition home or self-care (01) ==
LOC: PHYS 09:45
PROVIDERS: Family Provider Family Medicine; PCP Family Medicine; Referring Provider Family Medicine; Visit Provider Family Medicine
DX: M62.89 Other specified disorders of muscle (principal)
CPT/HCPCS: 97110; 97112; 97162; 97530; 97535

== ENCOUNTER → 2023-04-28 08:14 | Outpatient (CLI) | payer MEDICARE, OTHER, SELFPAY ==
[2023-04-28 09:42] LABS: Alanine Aminotransferase 33 IU/L (<35); Albumin 3.8 g/dL (3.5-5.0); Albumin Globulin Ratio 1.4 (1.0-2.8); Alkaline Phosphatase 72 U/L (38-126); Aspartate Aminotransferase 31 IU/L (14-36); BUN Creatinine Ratio 12.7 (6-22); Bilirubin Total 0.6 mg/dL (0.2-1.3); Blood Urea Nitrogen 9 mg/dL (7-17); Calcium 8.5 mg/dL (8.4-10.2); Carbon Dioxide 27 mmol/L (22-32); Chloride 104 mmol/L (98-107); Estimated Glomerular Filt Rate > 60 mL/min (>60); Globulin 2.8 g/dL (1.7-4.1); Glucose 82 mg/dL (80-110); HEMOLYSIS < 15 (0-50); Potassium 3.9 mmol/L (3.4-5.1); Sodium 138 mmol/L (137-145); Total Protein 6.6 g/dL (6.3-8.2)
== END ==
PROVIDERS: Family Provider Family Medicine; PCP Family Medicine; Referring Provider Family Medicine; Visit Provider Family Medicine
DX: K52.1 Toxic gastroenteritis and colitis (principal)
CPT/HCPCS: 36415; 80053

== ENCOUNTER 2023-08-03 08:05 | Day surgery (SDC) | payer MEDICARE, OTHER, SELFPAY ==
[2023-08-03 08:25] VITALS: BP 104/66; PULSE 60; RESP 18; TEMP 36.6; O2SAT 98; BMI 22.2
[2023-08-03] MEDS: LACTATED RINGERS 1,000 ML 84 ML IV (08:40)
--- NOTE | 2023-08-03 09:14 | P.HP_ITS ---
History of Present Illness History of Present Illness Date Patient Seen: 08/03/23 Time Patient Seen: 09:14 Chief complaint: SDC Narrative: Here for colon cancer screening. Reports she had polyps some 11 years ago at colonoscopy. [facility] Medical History Healthy adult Nondisplaced fracture of head of left radius Surgical History S/P complete hysterectomy S/P oophorectomy Social History marital status: number of children: 2 household members: spouse lives independently: Yes caregiver/support person: No housing: house Smoking Status: Never smoker second hand exposure: No alcohol intake: never substance use type: does not use Meds Home Medications and Allergies Home Medications Medication Instructions Recorded Confirmed Type [CALCIUM] 1,000 mg PO Q DAY ##0 12/31/12 08/03/23 History [VITAMIN D] 1 tab PO Q DAY ##0 12/31/12 08/03/23 History Allergies Allergy/AdvReac Type Severity Reaction Status Date / Time omeprazole [From PRILOSEC] Allergy Unknown Dizziness Verified 08/03/23 08:17 Review of Systems Review of Systems ROS: Yes All systems reviewed with the patient and are negative except as otherwise documented Exam Vital Signs (past 8 hours): - 08/03/23 08:25 Temperature 97.8 F Pulse Rate 60 Respiratory Rate 18 Blood Pressure 104/66 Pulse Oximetry 98 Oxygen Delivery Method Room Air Oxygen Delivery Method Room Air Const General: cooperative HENMT Head: normal to inspection Eyes General: appearance normal, both eyes and all related structures Neck Neck: normal visual inspection Chest Chest: normal inspection of the chest Resp Effort & Inspection: normal respiratory effort Cardio Rate: regular rate GI Inspection: normal to inspection Skin General: no rashes or lesions noted Neuro General: patient alert and patient awake Extrem General: normal to inspection and no pedal edema Psych Appearance: grossly normal Assessment & Plan Assessment & Plan narrative: 68-year-old female they personal history of polyps. Colonoscopy is pursued today.
--- NOTE | 2023-08-03 09:15 | PM.PREOP ---
Pre-operative Note Interval Note History & Physical reviewed/Exam performed by Physician: Yes Changes to H&P: No ASA Class (for procedural sedation): I
[2023-08-03 09:40] VITALS: BP 101/59; PULSE 57; RESP 21; TEMP 36.8; O2SAT 98
--- NOTE | 2023-08-03 09:42 | PM.OP.COLON ---
Operative Date/Time/Diagnoses Date of procedure: 08/03/23 Time of procedure: 09:42 Pre-op diagnosis: Colon cancer screening. Personal history of unknown histology polyps. Post-op diagnosis: same Procedure & Clinicians Study performed: Colonoscopy Same procedure as scheduled: Yes Indications: Screening. Personal history of unknown colon polyps. Surgeon: Adam Epstein Procedure Notes SCOAP/Timeout: Done Procedure in detail: After the risks and benefits were explained, written and verbal informed consent was obtained. The patient was brought into the procedure room and placed into the left lateral decubitus position. Please see anesthesia notes for sedation details. Digital rectal examination was accomplished. The scope was introduced into the patient and advanced under direct visualization to the cecum as identified by the appendiceal orifice and ileocecal valve. The scope was slowly withdrawn to carefully examine the mucosa for any defects or lesions. Comprehensive imaging was accomplished throughout the rectum including the dentate line. The colon was decompressed, the scope was then removed from the patient who tolerated the procedure well. Pediatric colonoscope Bowel prep adequate Scope withdrawal time: 8 minutes Sedation minutes: 17 Specimen(s): none sent Complications: none Impression: No significant pathology was appreciated throughout. Rectal exam was normal. Endoscopic diagnosis Visually normal colonoscopy Post-procedure Plan for aftercare: Repeat colonoscopy 10 years; sooner should symptoms warrant an earlier exam. Disposition: PACU
[2023-08-03 09:45] VITALS: BP 106/63; PULSE 59; RESP 17; O2SAT 99
[2023-08-03 09:50] VITALS: BP 105/66; PULSE 61; RESP 11; O2SAT 99
[2023-08-03 09:55] VITALS: BP 114/69; PULSE 54; RESP 15; O2SAT 99
[2023-08-03 10:01] VITALS: BP 131/73; PULSE 53; RESP 19; O2SAT 100
== END 2023-08-03 11:09 | disposition home or self-care (01) ==
PROVIDERS: Family Provider Family Medicine; PCP Family Medicine; Referring Provider Internal Medicine Gastroenterology; Visit Provider Internal Medicine Gastroenterology
PROC: 0DJD8ZZ Inspection of Lower Intestinal Tract, Via Natural or Artificial Opening Endoscopic (ICD-10-PCS; CPT 45378; principal; 2023-08-03 09:00)
DX: Z12.11 Encounter for screening for malignant neoplasm of colon (principal); Z86.010 Personal history of colon polyps
CPT/HCPCS: G0105; J2704

== ENCOUNTER → 2023-12-07 12:36 | Outpatient (CLI) | payer MEDICARE, OTHER, SELFPAY ==
--- NOTE | 2023-12-07 12:39 | DI.RAD.S_ITS ---
PROCEDURE: XR LUMBAR SPINE 2-3V INDICATIONS: low back pain after fall TECHNIQUE: 3 views of the lumbar spine were acquired. COMPARISON: None. FINDINGS: Bones: [id number] vertebrae are present. Wedge compression deformity of L1 is seen anteriorly with approximately 25% height loss. Soft tissues: Overlying bowel gas pattern is normal. No suspicious soft tissue calcifications. IMPRESSION: Wedge compression deformity of L1 with approximately 25% height loss may be acute or chronic. Dictated by: Sudarshan Trinidad M.D. on 12/07/2023 at 18:11 Approved by: Sudarshan Trinidad M.D. on 12/07/2023 at 18:13
== END ==
PROVIDERS: Family Provider Family Medicine; PCP Family Medicine; Referring Provider Family Medicine; Visit Provider Family Medicine
DX: M43.8X6 Other specified deforming dorsopathies, lumbar region (principal); M54.50 Low back pain, unspecified
CPT/HCPCS: 72100

== ENCOUNTER → 2024-01-06 08:16 | Outpatient (CLI) | payer MEDICARE, OTHER, SELFPAY ==
[2024-01-06 09:24] LABS: Alanine Aminotransferase 15 IU/L (<35); Albumin Globulin Ratio 1.3 (1.0-2.8); Alkaline Phosphatase 82 U/L (38-126); Aspartate Aminotransferase 25 IU/L (14-36); BUN Creatinine Ratio 19.1 (6-22); Bilirubin Total 1.2 mg/dL (0.2-1.3); Blood Urea Nitrogen 13 mg/dL (7-17); Calcium 8.8 mg/dL (8.4-10.2); Carbon Dioxide 29 mmol/L (22-32); Chloride 105 mmol/L (98-107); Cholesterol 186 mg/dL (140-199); Estimated Glomerular Filt Rate > 60 mL/min (>60); Globulin 3.2 g/dL (1.7-4.1); Glucose 85 mg/dL (80-110); HDL Cholesterol 55 mg/dL (40-60); HEMOLYSIS < 15 (0-50); LDL Cholesterol Calculated 118 mg/dL (<100); Sodium 139 mmol/L (137-145); Total Protein 7.2 g/dL (6.3-8.2); Triglycerides 63 mg/dL (35-150)
[2024-01-06 09:45] LABS: Vitamin D 25 Hydroxy (D3) 67.8 ng/mL (30.0-100.0)
[2024-01-07 18:08] LABS: Hep C Virus Ab w/Reflex Quant NEGATIVE s/c (NEGATIVE)
== END ==
PROVIDERS: Family Provider Family Medicine; PCP Family Medicine; Referring Provider Family Medicine; Visit Provider Family Medicine
DX: Z13.220 Encounter for screening for lipoid disorders (principal); M81.0 Age-related osteoporosis without current pathological fracture; Z13.9 Encounter for screening, unspecified
CPT/HCPCS: 36415; 80053; 80061; 82306; 86803

== ENCOUNTER → 2025-05-01 13:58 | Outpatient (CLI) | payer MEDICARE, OTHER, SELFPAY ==
--- NOTE | 2025-05-01 14:00 | DI.MG.S_ITS ---
MM screening mammo BI: 05/01/2025. BI-RADS: 1 CLINICAL: 69-year old female for bilateral screening mammogram. Tyrer-Cuzick lifetime risk of 14.2%. No personal or first-degree family history of breast cancer. Current reported family history of breast cancer: paternal grandmother. PRIOR EXAMS 03/26/2022, 07/22/2019. MAMMOGRAPHY TECHNIQUE: 2D and 3D (tomosynthesis) digital mammographic views obtained, with additional images as needed for full coverage. Current study was also evaluated with a Computer Aided Detection (CAD) system. DENSITY D. The breasts are extremely dense, which lowers the sensitivity of mammography. MAMMOGRAPHY FINDINGS Bilateral: No suspicious mass, asymmetry, microcalcification, or other abnormality seen. No significant change from comparison. IMPRESSION: * No evidence of malignancy. RECOMMENDATIONS Bilateral * Annual screening mammography. OVERALL ASSESSMENT CATEGORY BI-RADS-1: Negative. The [employer] recommends annual screening mammography beginning at age 40 for women with average risk of breast cancer. ELECTRONICALLY SIGNED: Deidra Daniel M.D. on 05/01/2025 at 04:44:33 PM PT Interpreting Station ID: [id number]
== END ==
LOC: MAMMO 13:59
PROVIDERS: Family Provider Family Medicine; PCP Family Medicine; Referring Provider Family Medicine; Visit Provider Family Medicine
DX: Z12.31 Encounter for screening mammogram for malignant neoplasm of breast (principal); Z80.3 Family history of malignant neoplasm of breast; R92.343 Mammographic extreme density, bilateral breasts
CPT/HCPCS: 77063; 77067

== ENCOUNTER → 2025-05-02 13:44 | Outpatient (CLI) | payer MEDICARE, OTHER, SELFPAY ==
--- NOTE | 2025-05-02 13:46 | DI.RAD.S_ITS ---
PROCEDURE: XR DEXA AXIAL SKELETON INDICATIONS: screening COMPARISON: [facility], [place], XR DEXA AXIAL SKELETON, 05/29/2022, 12:01. FINDINGS: Lumbar Spine: Bone mineral density 0.730 g/cm2, T score -2.9, osteoporosis, change from previous 1.5%. Statistical significance of bone mineral density change cannot be determined due to dissimilar scan types or analysis method.. Left Femoral Neck: Bone mineral density is 0.564 g/cm2, T score -2.6, osteoporosis, change from previous-1.7%. Statistical significance of bone mineral density change cannot be determined due to dissimilar scan types or analysis method.. Left Hip: Bone mineral density 0.746 g/cm2, T score -1.6, osteopenia, change from previous 1.1%. Statistical significance of bone mineral density change cannot be determined due to dissimilar scan types or analysis method.. Fracture Risk Calculation (when applicable): 10-year fracture risk of a major osteoporotic fracture 22 percent and of a hip fracture 5.5 percent. FRAX score is not valid because one or more T-scores are below-2.5. (T score greater or equal to -1.0 to: NORMAL) (T score from -1.1 to -2.4: OSTEOPENIA) (T score less than or equal to -2.5: OSTEOPOROSIS) IMPRESSION: Osteoporosis. The patient is at a high risk of fracture. No significant change in bone mineral density since the prior exam. Statistical significance cannot be performed. Follow-up guidelines as follows: Osteoporosis: Consider a repeat DEXA and Vertebral Fracture Assessment (VFA) exam in 2 years or sooner if medically necessary, to reassess this patient's status. Osteopenia: Consider a repeat DEXA in 2-3 years to reassess this patient's status, or if there is a new clinical indication. Normal: Consider a repeat DEXA in 5 years or sooner, or if there is a new clinical indication. All treatment decisions require clinical judgment and consideration of individual patient factors, including patient preferences, comorbidities, previous drug use, risk factors not captured in the FRAX model (e.g., frailty, falls, vitamin D deficiency, increased bone turnover, interval significant decline in bone density ) and possible under- or over-estimation of fracture risk by FRAX. In addition, the NOF Guide recommends that FDA-approved medical therapies be considered in postmenopausal women and men age >= 50 years with a: * Hip or vertebral (clinical or morphometric) fracture * T-score of <=-2.5 at the spine or hip * Ten-year fracture probability by FRAX of >= 3% for hip fracture or >=20% for major osteoporotic fracture. Dictated by: Deidra Daniel M.D. on 05/03/2025 at 1:08 Approved by: Deidra Daniel M.D. on 05/03/2025 at 1:09
== END ==
LOC: RAD 13:46
PROVIDERS: Family Provider Family Medicine; PCP Family Medicine; Referring Provider Family Medicine; Visit Provider Family Medicine
DX: M81.0 Age-related osteoporosis without current pathological fracture (principal)
CPT/HCPCS: 77080